=== PATIENT | male | born 1985 | race Caucasian/White ===

== ENCOUNTER 2020-09-19 06:30 | Outpatient (REF) | payer OTHER, SELFPAY ==
[2020-09-19 07:52] LABS: COVID-19 Test Negative (Negative)
== END 2020-09-19 06:31 | disposition home or self-care (01) ==
LOC: HO.EMPCOV 06:30
PROVIDERS: PCP Internal Medicine; Visit Provider Internal Medicine
DX: Z20.828 Contact with and (suspected) exposure to other viral communicable diseases (principal)
CPT/HCPCS: 87635; C9803

== ENCOUNTER → 2020-10-12 12:05 | Outpatient (BNVA) | payer OTHER, SELFPAY | PROVIDERS: PCP Internal Medicine; Visit Provider Physician Assistant | DX: Z20.822 Contact with and (suspected) exposure to COVID-19 (principal) | CPT/HCPCS: 99203 ==

== ENCOUNTER → 2020-10-14 10:58 | Outpatient (BNVA) | payer OTHER, SELFPAY | PROVIDERS: PCP Internal Medicine; Visit Provider Physician Assistant Medical | DX: Z20.822 Contact with and (suspected) exposure to COVID-19 (principal) | CPT/HCPCS: 99213 ==

== ENCOUNTER → 2020-10-21 10:08 | Outpatient (BNVA) | payer OTHER, SELFPAY | PROVIDERS: PCP Internal Medicine; Visit Provider Physician Assistant Medical | DX: Z20.822 Contact with and (suspected) exposure to COVID-19 (principal) | CPT/HCPCS: 99213 ==

== ENCOUNTER 2021-09-14 10:55 | Outpatient (REF) | payer OTHER, SELFPAY ==
[2021-09-14 10:59] LABS: MANUAL DIFF FLAG NO
[2021-09-14 11:15] LABS: Estimated Average Glucose 131 mg/dL; Hemoglobin A1c % 6.2 %
[2021-09-14 11:18] LABS: Basophils Absolute Auto 0.1 X10*3/uL (0.0-0.2); Basophils Percent Auto 1.1 % (0-2); Eosinophils Absolute Auto 0.2 X10*3/uL (0.0-0.4); Eosinophils Percent Auto 2.6 % (0-4); Hematocrit 43.8 % (42.0-52.0); Hemoglobin 14.9 g/dl (14.0-18.0); Imm Gran Abs Auto 0.02 X10*3/uL (0.00-0.03); Imm Gran Pct Auto 0.3 % (0.0-0.4); Lymphocytes Absolute Auto 2.1 X10*3/uL (1.2-4.9); Lymphocytes Percent Auto 31.5 % (20-40); Mean Corpuscular Hemoglobin 30.7 pg (27.0-33.0); Mean Corpuscular Volume 90.3 fL (80.0-98.0); Mean Platelet Volume 11.8 fL (9.4-12.4); Monocytes Absolute Auto 0.5 X10*3/uL (0.1-1.2); Monocytes Percent Auto 7.2 % (2-11); Neutrophils Absolute Auto 3.8 x10*3/uL (2.0-8.3); Neutrophils Percent Auto 57.3 % (45-73); Platelet Count 231 X10*3/uL (160-400); Red Blood Count 4.85 X10*6/uL (4.60-5.80); Red Cell Distribution Width 12.7 % (11.0-16.0); White Blood Count 6.7 X10*3/uL (4.8-10.8)
[2021-09-14 11:24] LABS: Appearance Urine CLEAR; Color Urine YELLOW; Glucose Urine UA NEG (NEG); Leukocyte Esterase Urine NEG (NEG); Nitrite Urine NEG (NEG); PH 5.5 (5.0-8.0); Specific Gravity - Urine 1.025 (1.005-1.025); Urine Blood NEG (NEG); Urine Ketones NEG (NEG); Urine Protein NEG (NEG-TRACE)
[2021-09-14 11:33] LABS: Alanine Aminotransferase 46 U/L (0-40); Albumin Level 4.1 g/dL (3.5-5.0); Alkaline Phosphatase 70 U/L (39-117); Anion Gap 13 (12-20); Aspartate Amino Transferase 27 U/L (5-37); Bilirubin Total 0.7 mg/dL (0.0-1.0); Blood Urea Nitrogen 13 mg/dL (9-16); Calcium 9.3 mg/dL (8.4-10.2); Carbon Dioxide 29 mmol/L (22-29); Chloride 104 mmol/L (96-108); Cholesterol 140 mg/dL; Estimated Glomerular Filt Rate > 60; Glucose Fasting 116 mg/dL (60-99); HDL Cholesterol 22 mg/dL; LDL Cholesterol Calculated 54 mg/dl; Potassium 4.1 mmol/L (3.3-5.1); Sodium 142 mmol/L (135-145); Triglycerides 320 mg/dL
[2021-09-14 11:57] LABS: Creatinine Urine 213.04 mg/dL; Microalbum/Creatinine Ratio Ur 3.7 ug/mg cr
== END 2021-09-14 10:56 | disposition home or self-care (01) ==
LOC: HO.LNP 10:55
PROVIDERS: PCP Internal Medicine; Visit Provider Internal Medicine
DX: Z00.00 Encounter for general adult medical examination without abnormal findings (principal); E78.6 Lipoprotein deficiency; R73.03 Prediabetes; I10 Essential (primary) hypertension
CPT/HCPCS: 80053; 80061; 81003; 82043; 83036; 85025

== ENCOUNTER 2021-10-07 06:50 | Outpatient (REF) | payer OTHER, SELFPAY ==
[2021-10-07 07:37] LABS: COVID-19 Test Negative (Negative)
== END 2021-10-07 06:51 | disposition home or self-care (01) ==
LOC: HO.LAB 06:50
PROVIDERS: Visit Provider Internal Medicine
DX: Z20.822 Contact with and (suspected) exposure to COVID-19 (principal)
CPT/HCPCS: 87635

== ENCOUNTER 2022-09-18 10:35 | Outpatient (REF) | payer SELFPAY ==
[2022-09-18 10:38] LABS: MANUAL DIFF FLAG NO
[2022-09-18 11:00] LABS: Appearance Urine Clear; Basophils Absolute Auto 0.1 X10*3/uL (0.0-0.2); Basophils Percent Auto 1.7 % (0-2); Color Urine Yellow; Eosinophils Absolute Auto 0.2 X10*3/uL (0.0-0.4); Glucose Urine UA Negative (Negative); Hematocrit 44.2 % (42.0-52.0); Hemoglobin 15.2 g/dl (14.0-18.0); Imm Gran Abs Auto 0.02 X10*3/uL (0.00-0.03); Imm Gran Pct Auto 0.3 % (0.0-0.4); Leukocyte Esterase Urine Negative (Negative); Lymphocytes Absolute Auto 2.2 X10*3/uL (1.2-4.9); Lymphocytes Percent Auto 31.7 % (20-40); Mean Corpuscular HGB Conc 34.4 g/dl (31.0-36.0); Mean Corpuscular Hemoglobin 30.1 pg (27.0-33.0); Mean Corpuscular Volume 87.5 fL (80.0-98.0); Mean Platelet Volume 11.7 fL (9.4-12.4); Monocytes Absolute Auto 0.5 X10*3/uL (0.1-1.2); Monocytes Percent Auto 6.5 % (2-11); Neutrophils Absolute Auto 3.9 x10*3/uL (2.0-8.3); Neutrophils Percent Auto 56.8 % (45-73); Nitrite Urine Negative (Negative); PH 5.5 (5.0-9.0); Platelet Count 235 X10*3/uL (160-400); Red Blood Count 5.05 X10*6/uL (4.60-5.80); Red Cell Distribution Width 12.9 % (11.0-16.0); Specific Gravity - Urine 1.015 (1.005-1.025); Urine Blood Negative (Negative); Urine Ketones Negative (Negative); Urine Protein Negative (Neg-Trace); White Blood Count 6.9 X10*3/uL (4.8-10.8)
[2022-09-18 11:05] LABS: Bacteria Urine None Seen (None Seen); Hyaline Casts Urine 0-2 /LPF (0-2); RBC Urine 0-2 /HPF (0-2); Squamous Epithelial Cell Urine 0-2 /HPF (0-2); WBC Urine 0-5 /HPF (0-5)
[2022-09-18 13:48] LABS: Alanine Aminotransferase 49 U/L (0-40); Albumin Level 4.2 g/dL (3.5-5.0); Alkaline Phosphatase 79 U/L (39-117); Anion Gap 13 (12-20); Aspartate Amino Transferase 34 U/L (5-37); Bilirubin Total 0.8 mg/dL (0.0-1.0); Blood Urea Nitrogen 10 mg/dL (9-16); Calcium 9.2 mg/dL (8.4-10.2); Carbon Dioxide 29 mmol/L (22-29); Chloride 102 mmol/L (96-108); Cholesterol 168 mg/dL; Estimated Glomerular Filt Rate > 60; Glucose Fasting 156 mg/dL (60-99); HDL Cholesterol 23 mg/dL; Potassium 3.9 mmol/L (3.3-5.1); Sodium 140 mmol/L (135-145); Total Protein 6.9 g/dL (6.5-8.0); Triglycerides 545 mg/dL
[2022-09-18 13:52] LABS: Microalbum/Creatinine Ratio Ur 17.2 ug/mg cr
[2022-09-18 14:16] LABS: Estimated Average Glucose 140 mg/dL; Hemoglobin A1c % 6.5 %
== END 2022-09-18 10:36 | disposition home or self-care (01) ==
LOC: HO.LNP 10:35
PROVIDERS: Visit Provider Internal Medicine
DX: Z00.00 Encounter for general adult medical examination without abnormal findings (principal); E78.6 Lipoprotein deficiency; I10 Essential (primary) hypertension; R73.03 Prediabetes
CPT/HCPCS: 80053; 80061; 81001; 82043; 83036; 85025

== ENCOUNTER 2023-11-28 12:20 | Outpatient (REF) | payer BC, SELFPAY ==
[2023-11-28 12:30] LABS: MANUAL DIFF FLAG NO
[2023-11-28 12:54] LABS: Basophils Absolute Auto 0.1 X10*3/uL (0.0-0.2); Basophils Percent Auto 1.3 % (0-2); Eosinophils Absolute Auto 0.2 X10*3/uL (0.0-0.4); Eosinophils Percent Auto 1.8 % (0-4); Hematocrit 45.6 % (42.0-52.0); Hemoglobin 16.1 g/dl (14.0-18.0); Imm Gran Abs Auto 0.02 X10*3/uL (0.00-0.03); Imm Gran Pct Auto 0.2 % (0.0-0.4); Lymphocytes Absolute Auto 2.3 X10*3/uL (1.2-4.9); Lymphocytes Percent Auto 27.7 % (20-40); Mean Corpuscular HGB Conc 35.3 g/dl (31.0-36.0); Mean Corpuscular Hemoglobin 30.4 pg (27.0-33.0); Mean Corpuscular Volume 86.2 fL (80.0-98.0); Mean Platelet Volume 11.7 fL (9.4-12.4); Monocytes Absolute Auto 0.5 X10*3/uL (0.1-1.2); Monocytes Percent Auto 5.8 % (2-11); Neutrophils Absolute Auto 5.1 x10*3/uL (2.0-8.3); Neutrophils Percent Auto 63.2 % (45-73); Platelet Count 250 X10*3/uL (160-400); Red Blood Count 5.29 X10*6/uL (4.60-5.80); Red Cell Distribution Width 13.2 % (11.0-16.0); White Blood Count 8.2 X10*3/uL (4.8-10.8)
[2023-11-28 13:02] LABS: Appearance Urine Turbid; Color Urine Dark Yellow; Glucose Urine UA 100 mg/dL (Negative); Leukocyte Esterase Urine Negative (Negative); Nitrite Urine Negative (Negative); PH 5.5 (5.0-9.0); Specific Gravity - Urine 1.025 (1.005-1.025); UMIC TRIGGER UACC YES; Urine Blood Negative (Negative); Urine Ketones Trace mg/dL (Negative); Urine Protein 100 (2+) mg/dL (Neg-Trace)
[2023-11-28 13:05] LABS: Estimated Average Glucose 189 mg/dL; Hemoglobin A1c % 8.2 % (<6.0)
[2023-11-28 13:17] LABS: Alanine Aminotransferase 70 U/L (0-40); Albumin Level 4.4 g/dL (3.5-5.0); Alkaline Phosphatase 95 U/L (39-117); Anion Gap 14 (12-20); Aspartate Amino Transferase 45 U/L (5-37); Bilirubin Total 1.3 mg/dL (0.0-1.0); Blood Urea Nitrogen 11 mg/dL (9-16); Calcium 9.5 mg/dL (8.4-10.2); Carbon Dioxide 27 mmol/L (22-29); Chloride 101 mmol/L (96-108); Cholesterol 202 mg/dL (<200); Estimated Glomerular Filt Rate > 60; Glucose Fasting 220 mg/dL (60-99); HDL Cholesterol 20 mg/dL (>40); Potassium 4.1 mmol/L (3.3-5.1); Sodium 138 mmol/L (135-145); Total Protein 7.6 g/dL (6.5-8.0); Triglycerides 825 mg/dL (<150)
[2023-11-28 13:27] LABS: Bacteria Urine None Seen (None Seen); RBC Urine 0-2 /HPF (0-2); WBC Urine 0-5 /HPF (0-5)
[2023-11-28 13:33] LABS: Microalbum/Creatinine Ratio Ur 44.3 ug/mg cr (<30)
[2023-11-28 13:35] LABS: PSA,Total (Free>4and<10) 0.47 ng/mL (0.00-4.00)
== END 2023-11-28 12:21 | disposition home or self-care (01) ==
LOC: HO.LNP 12:20
PROVIDERS: Visit Provider Internal Medicine
DX: Z00.00 Encounter for general adult medical examination without abnormal findings (principal); Z12.5 Encounter for screening for malignant neoplasm of prostate; E78.6 Lipoprotein deficiency; E11.9 Type 2 diabetes mellitus without complications; I10 Essential (primary) hypertension
CPT/HCPCS: 80053; 80061; 81001; 82043; 82570; 83036; 84153; 85025

== ENCOUNTER 2024-02-27 14:16 | Outpatient (AMB) | payer BC, SELFPAY ==
--- NOTE | 2024-02-27 14:21 | A.OFFVIS_ITS ---
VS Expanded 02/27/24 14:22 03/04/24 08:56 Height 5 ft 10 in 5 ft 10 in Weight 224 lb 13.944 oz 225 lb BMI 32.3 32.3 Intake Visit Reasons: T2DM/LVM Allergies sulfamethoxazole [From BACTRIM] Allergy (Mild, Unverified 06/16/20 15:57) RASH trimethoprim [From BACTRIM] Allergy (Mild, Unverified 06/16/20 15:57) RASH bactrim Allergy (Unknown, Uncoded 08/25/19 00:00) Nutrition Presentation Details: Pt presents for MNT for T2DM. Pt was referred by Dr. Betancourt Reports having lack of meal routine, wants to work on meal planning and nutrition ed for t2dm food frequency fruits/d: 0-1/d vegetables: 1-2 serving/d dairy: fortified almond fish: 2-3 m eating out: once/wk ETOH: occ smoking: denies physical : sedentary /golfing BS Monitoring Most Recent Diabetes Results: Hemoglobin A1c 5.5 % 02/02/19 Microalb/Creat Ratio 44.3 ug/mg cr (<30) H 11/28/23 Cholesterol 202 mg/dL (<200) H 11/28/23 HDL Cholesterol 20 mg/dL (>40) L 11/28/23 Triglycerides 825 mg/dL (<150) H 11/28/23 Creatinine 1.08 mg/dL (0.5-1.4) 11/28/23 Blood Urea Nitrogen 11 mg/dL (9-16) 11/28/23 Sodium 138 mmol/L (135-145) 11/28/23 Potassium 4.1 mmol/L (3.3-5.1) 11/28/23 Chloride 101 mmol/L (96-108) 11/28/23 Carbon Dioxide 27 mmol/L (22-29) 11/28/23 Calcium 9.5 mg/dL (8.4-10.2) 11/28/23 AST 45 U/L (5-37) H 11/28/23 ALT 70 U/L (0-40) H 11/28/23 Total Protein 7.6 g/dL (6.5-8.0) 11/28/23 Albumin 4.4 g/dL (3.5-5.0) 11/28/23 D[facility]-Sqkby[facility]-AtJessica Equation Height: 5 ft 10 in Weight: 225 lb Resting Metabolic Rate: 1939.01 Calculated Activity Level: Sedentary Calories Needed to Maintain Weight: 2326.81 Diagnosis Nutrition problem #1: food nutri know defi As related to (etiology) #1: diagnosis As evidenced by (sign/symptom) #1: knowledge deficit of diet Monitoring/Goals Nutrition problem monitoring: level of knowledge/skill, glucose, fasting, total CHO intake and weight Nutrition goal/outcome: list 3 CHO foods, wt loss 5lbs in 2 months and list 3 high fiber foods Outcome progress: verbalized understanding Learning/Education Readiness to learn: good Stages of change: preparation Assessment & Plan Assessment & Plan (1) T2DM (type 2 diabetes mellitus): Code(s): E11.9 - Type 2 diabetes mellitus without complications Category: Medical Plan: Wt: 102 Kg ( 01/2024 ) Est kcal needs as per MSJ: 2300 (40% carb, 30% protein/fat) Est fluid needs as per 25-30 ml/d: 3100 Est prot per day as per 1 g/kg bw: 102 Recommend fiber intake : 8-10 g per day and gradually increase to 25-28 g per day for women and 35-38 g for men or as tolerated Recommend sodium intake per day : less than 2000 mg Educated patient on: ( R = reviewed V = verbalizes understanding N/R = needs review N/A = not applicable * Food sources of carbohydrate, adequate serving sizes and its role in various health conditions: R * Differences between complex carbohydrates a simple carbohydrates, role of fiber in diet: R * Lean protein sources of foods: R * Differences between types of fats and role in diet (mono on saturated fat fatty acids, saturated fatty acids, trans fats): R * Food sources of sodium in salt and healthy modifications for heart health in kidney health: R V R/V * Vitamins and minerals: R V N/R * Healthy plate method concept: R * Physical activity: Benefits a precaution: R V N/R * Hypoglycemia protocol (rule of 15): R V N/R * Dietary prevention of Hyperglycemia: R Patient Instructions: Reduce total carbohydrate at meal to less than 80 g following healthy plate method choose complex carbohydrates, water/fruit/herb infused water abstain from alcoholic beverages Coding Level of Care Code Nutr Indiv Intake (80130) Diagnoses T2DM (type 2 diabetes mellitus) E11.9 Time Spent (min) 30
[2024-02-27 14:22] VITALS: BMI 32.3
[2024-03-04 08:56] VITALS: BMI 32.3
== END 2024-02-27 15:04 | disposition home or self-care (01) ==
PROVIDERS: PCP Internal Medicine; Visit Provider Dietitian, Registered
DX: E11.9 Type 2 diabetes mellitus without complications (principal)

== ENCOUNTER → 2024-02-27 14:16 | Outpatient (BNVA) | payer BC, SELFPAY | PROVIDERS: PCP Internal Medicine; Visit Provider Dietitian, Registered | DX: E11.9 Type 2 diabetes mellitus without complications (principal); Z71.3 Dietary counseling and surveillance | CPT/HCPCS: 97802 ==

== ENCOUNTER 2024-03-05 11:06 | Outpatient (REF) | payer BC, SELFPAY ==
[2024-03-05 12:03] LABS: Alanine Aminotransferase 48 U/L (0-40); Albumin Level 4.2 g/dL (3.5-5.0); Alkaline Phosphatase 105 U/L (39-117); Aspartate Amino Transferase 29 U/L (5-37); Bilirubin Direct 0.3 mg/dL (0.0-0.5); Bilirubin Total 0.9 mg/dL (0.0-1.0); Cholesterol 115 mg/dL (<200); HDL Cholesterol 19 mg/dL (>40); Triglycerides 444 mg/dL (<150)
[2024-03-07 08:04] LABS: LDL Cholesterol Direct 30 mg/dL (<100)
== END 2024-03-05 11:07 | disposition home or self-care (01) ==
LOC: HO.LNP 11:06
PROVIDERS: Visit Provider Internal Medicine
DX: E11.9 Type 2 diabetes mellitus without complications (principal)
CPT/HCPCS: 80061; 80076; 83721

== ENCOUNTER 2024-04-09 13:54 | Outpatient (AMB) | payer BC, SELFPAY ==
[2024-04-09 14:17] VITALS: BMI 31.8
--- NOTE | 2024-04-09 14:17 | A.OFFVIS_ITS ---
VS Expanded 04/09/24 14:17 Height 5 ft 10 in Weight 221 lb 5.506 oz BMI 31.8 Intake Visit Reasons: T2DM/LVM Allergies sulfamethoxazole [From BACTRIM] Allergy (Mild, Unverified 06/16/20 15:57) RASH trimethoprim [From BACTRIM] Allergy (Mild, Unverified 06/16/20 15:57) RASH bactrim Allergy (Unknown, Uncoded 08/25/19 00:00) Nutrition Presentation Details: Pt presents for MNT f/u for t2DM Pt reports working on gradual diet modification and Increasing fiber choosing fiber rich foods, reading food labels BS Monitoring Most Recent Diabetes Results: Microalb/Creat Ratio 44.3 ug/mg cr (<30) H 11/28/23 Cholesterol 115 mg/dL (<200) 03/05/24 HDL Cholesterol 19 mg/dL (>40) L 03/05/24 Triglycerides 444 mg/dL (<150) H 03/05/24 Creatinine 1.08 mg/dL (0.5-1.4) 11/28/23 Blood Urea Nitrogen 11 mg/dL (9-16) 11/28/23 Sodium 138 mmol/L (135-145) 11/28/23 Potassium 4.1 mmol/L (3.3-5.1) 11/28/23 Chloride 101 mmol/L (96-108) 11/28/23 Carbon Dioxide 27 mmol/L (22-29) 11/28/23 Calcium 9.5 mg/dL (8.4-10.2) 11/28/23 AST 29 U/L (5-37) 03/05/24 ALT 48 U/L (0-40) H 03/05/24 Total Protein 7.0 g/dL (6.5-8.0) 03/05/24 Albumin 4.2 g/dL (3.5-5.0) 03/05/24 Assessment & Plan Assessment & Plan (1) T2DM (type 2 diabetes mellitus): Code(s): E11.9 - Type 2 diabetes mellitus without complications Category: Medical Plan: Wt: 102 Kg ( 01/2024 ), 100kg (03/2024) Est kcal needs as per MSJ: 2300 (40% carb, 30% protein/fat) Est fluid needs as per 25-30 ml/d: 3100 Est prot per day as per 1 g/kg bw: 102 Recommend fiber intake : 8-10 g per day and gradually increase to 25-28 g per day for women and 35-38 g for men or as tolerated Recommend sodium intake per day : less than 2000 mg Educated patient on: ( R = reviewed V = verbalizes understanding N/R = needs review N/A = not applicable * Food sources of carbohydrate, adequate serving sizes and its role in various health conditions: R * Differences between complex carbohydrates a simple carbohydrates, role of fiber in diet: R * Lean protein sources of foods: R * Differences between types of fats and role in diet (mono on saturated fat fatty acids, saturated fatty acids, trans fats): R * Food sources of sodium in salt and healthy modifications for heart health in kidney health: R * Vitamins and minerals: R * Physical activity: Benefits a precaution: R * Hypoglycemia protocol (rule of 15): R V N/R * Dietary prevention of Hyperglycemia: R Patient Instructions: Continue working om meal planning , reducing total carb at meal to less than 80 g following healthy plat emthod Be mindful of high salt foods, do not add table salt to foods Coding Level of Care Code Nutr Indiv Subseq (27727) Diagnoses T2DM (type 2 diabetes mellitus) E11.9 Time Spent (min) 20
== END 2024-04-09 14:41 | disposition home or self-care (01) ==
PROVIDERS: PCP Internal Medicine; Visit Provider Dietitian, Registered
DX: E11.9 Type 2 diabetes mellitus without complications (principal)

== ENCOUNTER → 2024-04-09 13:54 | Outpatient (BNVA) | payer BC, SELFPAY | PROVIDERS: PCP Internal Medicine; Visit Provider Dietitian, Registered | DX: E11.9 Type 2 diabetes mellitus without complications (principal); Z71.3 Dietary counseling and surveillance | CPT/HCPCS: 97803 ==

== ENCOUNTER 2024-07-09 14:15 | Outpatient (AMB) | payer BC, SELFPAY ==
--- NOTE | 2024-07-09 14:40 | A.OFFVIS_ITS ---
VS Expanded 07/09/24 14:41 Height 5 ft 10 in Weight 221 lb 9.738 oz BMI 31.8 Intake Visit Reasons: T2DM/CONFIRMED Allergies sulfamethoxazole [From BACTRIM] Allergy (Mild, Unverified 06/16/20 15:57) RASH trimethoprim [From BACTRIM] Allergy (Mild, Unverified 06/16/20 15:57) RASH bactrim Allergy (Unknown, Uncoded 08/25/19 00:00) Nutrition Presentation Details: Pt presents for MNT f/u for T2DM Pt reports working on dietary modifications t BS Monitoring Most Recent Diabetes Results: Microalb/Creat Ratio 44.3 ug/mg cr (<30) H 11/28/23 Cholesterol 115 mg/dL (<200) 03/05/24 HDL Cholesterol 19 mg/dL (>40) L 03/05/24 Triglycerides 444 mg/dL (<150) H 03/05/24 Creatinine 1.08 mg/dL (0.5-1.4) 11/28/23 Blood Urea Nitrogen 11 mg/dL (9-16) 11/28/23 Sodium 138 mmol/L (135-145) 11/28/23 Potassium 4.1 mmol/L (3.3-5.1) 11/28/23 Chloride 101 mmol/L (96-108) 11/28/23 Carbon Dioxide 27 mmol/L (22-29) 11/28/23 Calcium 9.5 mg/dL (8.4-10.2) 11/28/23 AST 29 U/L (5-37) 03/05/24 ALT 48 U/L (0-40) H 03/05/24 Total Protein 7.0 g/dL (6.5-8.0) 03/05/24 Albumin 4.2 g/dL (3.5-5.0) 03/05/24 Assessment & Plan Assessment & Plan (1) T2DM (type 2 diabetes mellitus): Code(s): E11.9 - Type 2 diabetes mellitus without complications Category: Medical Plan: Wt: 102 Kg ( 01/2024 ), 100kg (03/2024), 07/23 Est kcal needs as per MSJ: 2300 (40% carb, 30% protein/fat) Est fluid needs as per 25-30 ml/d: 3100 Est prot per day as per 1 g/kg bw: 102 Recommend fiber intake : 8-10 g per day and gradually increase to 25-28 g per day for women and 35-38 g for men or as tolerated Recommend sodium intake per day : less than 2000 mg Educated patient on: ( R = reviewed V = verbalizes understanding N/R = needs review N/A = not applicable * Food sources of carbohydrate, adequate serving sizes and its role in various health conditions: R * Differences between complex carbohydrates a simple carbohydrates, role of fiber in diet: R * Lean protein sources of foods: R * Differences between types of fats and role in diet (mono on saturated fat fatty acids, saturated fatty acids, trans fats): R * Food sources of sodium in salt and healthy modifications for heart health in kidney health: R * Vitamins and minerals: R * Physical activity: Benefits a precaution: R * Hypoglycemia protocol (rule of 15): R V N/R * Dietary prevention of Hyperglycemia: R Patient Instructions: Continue working on following healthy plate method, Choose fiber rich foods (whole grain, seeds, non starchy vegetables) and increase water consumption to prevent constipation as you increase amount of fiber Coding Level of Care Code Nutr Indiv Subseq (99878) Diagnoses T2DM (type 2 diabetes mellitus) E11.9 Time Spent (min) 25
[2024-07-09 14:41] VITALS: BMI 31.8
== END 2024-07-09 14:58 | disposition home or self-care (01) ==
PROVIDERS: PCP Internal Medicine; Visit Provider Dietitian, Registered
DX: E11.9 Type 2 diabetes mellitus without complications (principal)

== ENCOUNTER → 2024-07-09 14:15 | Outpatient (BNVA) | payer BC, SELFPAY | PROVIDERS: PCP Internal Medicine; Visit Provider Dietitian, Registered | DX: E11.9 Type 2 diabetes mellitus without complications (principal); Z71.3 Dietary counseling and surveillance | CPT/HCPCS: 97803 ==

== ENCOUNTER 2024-12-03 10:16 | Outpatient (REF) | payer BC, SELFPAY ==
[2024-12-03 10:21] LABS: MANUAL DIFF FLAG NO
[2024-12-03 11:23] LABS: Basophils Absolute Auto 0.1 X10*3/uL (0.0-0.2); Basophils Percent Auto 1.3 % (0-2); Eosinophils Absolute Auto 0.2 X10*3/uL (0.0-0.4); Eosinophils Percent Auto 2.2 % (0-4); Hematocrit 45.4 % (42.0-52.0); Hemoglobin 15.5 g/dl (14.0-18.0); Imm Gran Abs Auto 0.02 X10*3/uL (0.00-0.03); Imm Gran Pct Auto 0.3 % (0.0-0.4); Lymphocytes Absolute Auto 2.2 X10*3/uL (1.2-4.9); Lymphocytes Percent Auto 28.4 % (20-40); Mean Corpuscular HGB Conc 34.1 g/dl (31.0-36.0); Mean Corpuscular Hemoglobin 29.9 pg (27.0-33.0); Mean Corpuscular Volume 87.6 fL (80.0-98.0); Mean Platelet Volume 12.3 fL (9.4-12.4); Monocytes Absolute Auto 0.7 X10*3/uL (0.1-1.2); Monocytes Percent Auto 8.7 % (2-11); Neutrophils Absolute Auto 4.6 x10*3/uL (2.0-8.3); Neutrophils Percent Auto 59.1 % (45-73); Platelet Count 232 X10*3/uL (160-400); Red Blood Count 5.18 X10*6/uL (4.60-5.80); Red Cell Distribution Width 12.8 % (11.0-16.0); White Blood Count 7.8 X10*3/uL (4.8-10.8)
[2024-12-03 11:36] LABS: Estimated Average Glucose 232 mg/dL; Hemoglobin A1c % 9.7 % (<6.0)
[2024-12-03 11:47] LABS: Alanine Aminotransferase 74 U/L (0-40); Albumin Level 4.3 g/dL (3.5-5.0); Alkaline Phosphatase 125 U/L (39-117); Anion Gap 15 (12-20); Aspartate Amino Transferase 58 U/L (5-37); Bilirubin Total 1.1 mg/dL (0.0-1.0); Blood Urea Nitrogen 12 mg/dL (9-16); Calcium 9.4 mg/dL (8.4-10.2); Carbon Dioxide 27 mmol/L (22-29); Chloride 102 mmol/L (96-108); Cholesterol 120 mg/dL (<200); Estimated Glomerular Filt Rate > 60; Glucose Fasting 237 mg/dL (60-99); HDL Cholesterol 20 mg/dL (>40); Potassium 3.7 mmol/L (3.3-5.1); Sodium 140 mmol/L (135-145); Total Protein 7.8 g/dL (6.5-8.0); Triglycerides 504 mg/dL (<150)
[2024-12-03 11:55] LABS: PSA,Total (Free>4and<10) 0.54 ng/mL (0.00-4.00)
[2024-12-03 11:57] LABS: Appearance Urine Hazy; Color Urine Yellow; Glucose Urine UA 250 mg/dL (Negative); Leukocyte Esterase Urine Negative (Negative); Nitrite Urine Negative (Negative); Specific Gravity - Urine >= 1.030 (1.005-1.025); UMIC TRIGGER UACC YES; Urine Blood Negative (Negative); Urine Ketones Trace mg/dL (Negative); Urine Protein 30 (1+) mg/dL (Neg-Trace)
[2024-12-03 11:58] LABS: Bacteria Urine Trace (None Seen); Hyaline Casts Urine 0-2 /LPF (0-2); RBC Urine 0-2 /HPF (0-2); Squamous Epithelial Cell Urine 0-2 /HPF (0-2); WBC Urine 0-5 /HPF (0-5)
--- OUTSIDE RECORDS SUMMARY | 2024-12-03 12:10 | XMS_ITS | Patient Health Record ---
Author Organization Elmer Betancourt MD Address [address] [place], [place] [id number] Care Team Providers Care Credit Adjuster Name Role Phone Elmer Betancourt Primary Care Provider [phone] Allergies Allergen (clinical drug ingredient) Drug/Non Drug Allergy documented on EMR Reaction Allergy Type Onset Date Status Substance with sulfonamide structure and antibacterial mechanism of action (substance) sulfa (uncoded) hives Allergy Active Results Component Value Reference Range Notes Hemoglobin A1c Reviewed date:03/09/2024 03:16:09 PM Interpretation: Performing Lab: Notes/Report: Hemoglobin A1c 7.2 Hemoglobin A1c Reviewed date:07/09/2024 01:36:45 PM Interpretation: Performing Lab: Notes/Report: Hemoglobin A1c 8.4 Liver Panel Reviewed date:03/05/2024 12:43:58 PM Interpretation: Performing Lab:[facility], [address] [place] [phone] Notes/Report: Bilirubin Total 0.9 0.0-1.0 mg/dL Bilirubin Direct 0.3 0.0-0.5 mg/dL Aspartate Amino Transferase 29 5-37 U/L Alanine Aminotransferase 48 0-40 U/L Total Protein 7.0 6.5-8.0 g/dL Albumin Level 4.2 3.5-5.0 g/dL Alkaline Phosphatase 105 39-117 U/L Lipid Panel Reviewed date:03/05/2024 12:53:35 PM Interpretation: Performing Lab:[facility], [address] [place] [phone] Notes/Report: Triglycerides 444 <150 mg/dL Desirable Triglyceride: less than 150 mg/dL Borderline High Triglyceride 150-199 mg/dL High Triglyceride: 200-499 mg/dL Very High Triglyceride: greater than or equal to 5OO mg/dL Cholesterol 115 <200 mg/dL Desirable Cholesterol: less than 200 mg/dL Borderline High Cholesterol: 200-239 mg/dL High Cholesterol: greater than 239 mg/dL LDL Cholesterol Calculated TNP <100 mg/dL Unable to calculate the LDL. The formula of Friedwald, Rosario, and Lurdes is only valid if the triglycerides are less than 400 mg/dl. HDL Cholesterol 19 >40 mg/dL Desirable HDL: greater than 40 mg/dL Note: This HDL assay may give artificially low results in patients with liver disease. LDL Cholesterol Direct Reviewed date:03/09/2024 12:40:23 PM Interpretation: Performing Lab:[facility], [address] [place] [phone] Notes/Report: LDL Cholesterol Direct 30 <100 mg/dL Greatly elevated Triglycerides values (>1200 mg/dL) interfere with the dLDL assay. Desirable range <100 mg/dL for primary prevention; <70 mg/dL for patients with CHD or diabetic patients with > or = 2 CHD risk factors. THIS TEST WAS PERFORMED AT: [facility] [address] [place] [phone] BRIANNA CARMEN MD Glucose, finger stick Reviewed date:03/09/2024 03:01:04 PM Interpretation: Performing Lab: Notes/Report: Value 178 Glucose, finger stick Reviewed date:07/09/2024 01:30:17 PM Interpretation: Performing Lab: Notes/Report: Value 156 Complete Blood Count Auto Di ff (Not yet reviewed by provider) Interpretation: Performing Lab:[facility], [address] [place] [phone] Notes/Report: White Blood Count 7.8 4.8-10.8 X10*3/uL Red Blood Count 5.18 4.60-5.80 X10*6/uL Hemoglobin 15.5 14.0-18.0 g/dl Hematocrit 45.4 42.0-52.0 % Mean Corpuscular Volume 87.6 80.0-98.0 fL Mean Corpuscular Hemoglobin 29.9 27.0-33.0 pg Mean Corpuscular HGB Conc 34.1 31.0-36.0 g/dl Red Cell Distribution Width 12.8 11.0-16.0 % Platelet Count 232 160-400 X10*3/uL Mean Platelet Volume 12.3 9.4-12.4 fL Neutrophils Percent Auto 59.1 45-73 % Imm Gran Pct Auto 0.3 0.0-0.4 % Lymphocytes Percent Auto 28.4 20-40 % Monocytes Percent Auto 8.7 2-11 % Eosinophils Percent Auto 2.2 0-4 % Basophils Percent Auto 1.3 0-2 % NRBC Pct Auto 0.0 0.0-0.2 /100WBC Neutrophils Absolute Auto 4.6 2.0-8.3 x10*3/u L Imm Gran Abs Auto 0.02 0.00-0.03 X10*3/uL Lymphocytes Absolute Auto 2.2 1.2-4.9 X10*3/u L Monocytes Absolute Auto 0.7 0.1-1.2 X10*3/uL Eosinophils Absolute Auto 0.2 0.0-0.4 X10*3/u L Basophils Absolute Auto 0.1 0.0-0.2 X10*3/uL NRBC Abs Auto 0.000 0.0-0.012 X10*3/uL Comprehensive [place]. Panel Fa st (Not yet reviewed by provider) Interpretation: Performing Lab:[facility], [address] [place] [address], [place] [phone] Notes/Report: Sodium 140 135-145 mmol/L Potassium 3.7 3.3-5.1 mmol/L Chloride 102 96-108 mmol/L Carbon Dioxide 27 22-29 mmol/L Anion Gap 15 12-20 Blood Urea Nitrogen 12 9-16 mg/dL Creatinine 0.99 0.5-1.4 mg/dL Estimated Glomerular Filt Rate > 60 Chronic Kidney Disease: Estimated GFR < 60 mL/min/1.73m2 Severe Kidney Disease: Estimated GFR < 15 mL/min/1.73m2 Glucose Fasting 237 60-99 mg/dL A fasting glucose of 126 mg/dl or greater on more than one occasion is considered diagnostic of diabetes. Calcium 9.4 8.4-10.2 mg/dL Bilirubin Total 1.1 0.0-1.0 mg/dL Aspartate Amino Transferase 58 5-37 U/L Alanine Aminotransferase 74 0-40 U/L Total Protein 7.8 6.5-8.0 g/dL Albumin Level 4.3 3.5-5.0 g/dL Alkaline Phosphatase 125 39-117 U/L Lipid Panel (Not yet reviewe d by provider) Interpretation: Performing Lab:[address] [phone] Notes/Report: Triglycerides 504 <150 mg/dL Desirable Triglyceride: less than 150 mg/dL Borderline High Triglyceride 150-199 mg/dL High Triglyceride: 200-499 mg/dL Very High Triglyceride: greater than or equal to 5OO mg/dL Cholesterol 120 <200 mg/dL Desirable Cholesterol: less than 200 mg/dL Borderline High Cholesterol: 200-239 mg/dL High Cholesterol: greater than 239 mg/dL LDL Cholesterol Calculated TNP <100 mg/dL Unable to calculate the LDL. The formula of Friedwald, Rosario, and Lurdes is only valid if the triglycerides are less than 400 mg/dl. HDL Cholesterol 20 >40 mg/dL Desirable HDL: greater than 40 mg/dL Note: This HDL assay may give artificially low results in patients with liver disease. PSA,Total (Free>4and<10) (No t yet reviewed by provider) Interpretation: Performing Lab:[facility], [address] [place] [phone] Notes/Report: PSA,Total (Free>4and<10) 0.54 0.00-4.00 ng/mL A Free PSA was not performed: The percentage of Free PSA can be used to enhance the differentiation of prostate cancer from benign prostatic disease in subjects whose PSA levels are between 4.0 and 10.0 ng/mL. For subjects whose PSA levels are below 4.0 or above 10.0 ng/mL, the risk of prostate cancer is determined on the basis of the PSA alone. Therefore the % Free PSA is recommended only for those subjects whose PSA levels are between 4.0 and 10.0 ng/mL. PSA methodology: Rowe Alinity i Chemiluminescent Microparticle Immunoassay (CMIA) Hemoglobin A1c (Not yet revi ewed by provider) Interpretation: Performing Lab:[facility], [address] [place] [phone] Notes/Report: Hemoglobin A1c % 9.7 <6.0 % Hemoglobin A1C Reference Range Adults: 4.8 - 6.0 % Non diabetic: < 6.0 % Goal: < 7.0 % Additional Action Suggested: > 8.0 % Note: Hemoglobin A1c results are invalid for patients with abnormal amounts of HbF. Blood transfusions may impact the HbA1c concentration in the patient sample. Estimated Average Glucose 232 eAG = Estimated average glucose which is %A1C expressed as average glucose, using the formula of the [id number] Average Glucose study (ADAG), Diabetes Care, Vol.31,#8, 2007 UA ClnCatch+Micro w/rflx Cul t (Not yet reviewed by provider) Interpretation: Performing Lab:[facility], [address] [place] [phone] Notes/Report: Urine, Clean Catch Color Urine Yellow Appearance Urine Hazy PH 6.0 5.0-9.0 Glucose Urine UA 250 Negative mg/dL Urine Blood Negative Negative Specific [place] - Urine >= 1.030 1.005-1.025 Urine Protein 30 (1+) Neg-Trace mg/dL Urine Ketones Trace Negative mg/dL Nitrite Urine Negative Negative Leukocyte Esterase Urine Negative Negative RBC Urine 0-2 0-2 /HPF WBC Urine 0-5 0-5 /HPF Squamous Epithelial Cell Urine 0-2 0-2 /HPF Bacteria Urine Trace None Seen Hyaline Casts Urine 0-2 0-2 /LPF Reason For Referral No Information Medications Medication SIG (Take, Route, Frequency, Duration) Notes Start Date End Date Status Atorvastatin Calcium 40 MG 1 tablet Orally Once a day 12/03/2023 Active Valsartan-hydroCHLOROthia zide 160-12.5 MG 1 tablet Orally Once a day 12/03/2023 Active metFORMIN HCl 500 MG 1 tablet with a amy l Orally twice a day 12/03/2023 Active Ibuprofen 200 MG 1 tablet with food o r milk as needed Orally Three times a day Not-Taking Albuterol Sulfate HFA 108 (90 Base) MCG/ACT INHALE 1 PUFF INTO THE LUNGS EVERY 4 HOURS NEEDED for 25 Not-Taking Immunizations Vaccine Route Administration Date Status Comme nts Fluarix Quadrivalent Unknown 08/28/2018 Administered HM C SARS-COV-2 Pfizer Unknown 09/19/2020 Administered SARS-COV-2 Pfizer Unknown 10/10/2020 Administered SARS-COV-2 Pfizer Unknown 10/03/2021 Administered Social History Tobacco Use: Social History Observation Description Date Details (start date - stop date) Never Smoker NA - NA Tobacco Use/Smoking Question Answer Notes Patient is a nonsmoker Additional Findings: Tobacco Non-User Cu rrent non-smoker, currently using no form of tobacco Alcohol Screen Question Answer Notes Did you have a drink contain ing alcohol in the past year? Yes How often did you have a dri nk containing alcohol in the past year? Monthly or less (1 point) How many drinks did you have on a typical day when you were drinking in the past year? 1 or 2 drinks (0 point) How often did you have 6 or more drinks on one occasion in the past year? Never (0 point) Points 1 Interpretation Negative Section Notes: works as [employer] works as [employer] Problems Problem Type SNOMED Code ICD Code Onset Dates Problem Status W/U Status Risk Notes Problem 74940499 Essential hypertension (I10) Active confirmed Problem 582569763 Low HDL (under 40) (E78.6) Active confirmed Problem 982497828 Dysplastic nevi (D23.9) Active confirmed Problem 881205004 Type 2 diabetes mellitus without complication, without long-term current use of insulin (E11.9) Active confirmed Problem 847495945 Emotional stress (R45.7) Active confirmed Vital Signs Blood pressure diastolic 76 mm Hg 07/09/2024 Height 70 in 07/09/2024 Blood pressure systolic 142 mm Hg 07/09/2024 Weight 222 lbs 07/09/2024 BMI 31.85 kg/m2 07/09/2024 Encounters Encounter Location Date Provider Diagnosis Elmer Betancourt MD [address] [facility] [address] [place], [place] [phone] 03/05/2024 Elmer Betancourt Type 2 diabetes mellitus without complication, without long-term current use of insulin E11.9 and Low HDL (under 40) E78.6 Elmer Betancourt MD [address] [place] [phone] 12/03/2024 Elmer Betancourt Blood tests for routine general physical examination Z00.00 ; Low HDL (under 40) E78.6 ; Essential hypertension I10 and Type 2 diabetes mellitus without complication, without long-term current use of insulin E11.9 Elmer Betancourt MD [address] [place] [address] [id number] 03/09/2024 Elmer Betancourt Type 2 diabetes mellitus without complication, without long-term current use of insulin E11.9 ; Low HDL (under 40) E78.6 and Essential hypertension I10 Elmer Betancourt MD [address] [place] [address] [address] [id number] 07/09/2024 Elmer Betancourt Type 2 diabetes mellitus without complication, without long-term current use of insulin E11.9 and Emotional stress R45.7 Assessments Encounter Date Diagnosis (ICD Code) Assessment Notes Treatment Notes Treatment Clinical Notes Section Notes 03/05/2024 Type 2 diabetes mellitus without complication, without long-term current use of insulin (ICD-10 - E11.9) 03/05/2024 Low HDL (under 40) (ICD-10 - E78.6) 12/03/2024 Blood tests for routine general physical examination (ICD-10 - Z00.00) 03/09/2024 Type 2 diabetes mellitus without complication, without long-term current use of insulin (ICD-10 - E11.9) will continue current regient and maintain better diet control 03/09/2024 Low HDL (under 40) (ICD-10 - E78.6) stable, will cntinue current regiment 07/09/2024 Type 2 diabetes mellitus without complication, without long-term current use of insulin (ICD-10 - E11.9) 07/09/2024 Emotional stress (ICD-10 - R45.7) is starting jumping rope to lose weight, enoying new job 12/03/2024 Low HDL (under 40) (ICD-10 - E78.6) 03/09/2024 Essential hypertension (ICD-10 - I10) stable, will continue current regiment 12/03/2024 Essential hypertension (ICD-10 - I10) 12/03/2024 Type 2 diabetes mellitus without complication, without long-term current use of insulin (ICD-10 - E11.9) 07/09/2024 Other Total time spent on the date of the encounter is 35 minutes including both face to face time spent and time spent reviewing documentation, and counseling the patient. Plan Of Treatment Pending Test Test Name Order Date Complete Blood Count Auto Diff 5 Comprehensive [place]. Panel Fast 5 Lipid Panel 12/03/2024 PSA,Total (Free>4and<10) 12/03/2024 Microalbumin, Random 12/03/2024 Hemoglobin A1c 12/03/2024 UA ClnCatch+Micro w/rflx Cult 12/03/2024 Next Appt Details Provider Name:Elmer mellor, 12/10/2024 08:00:00 AM, [address] [place] [address], [address], [place], [place], [id number], Insurance Providers Payer Name Payer Address Payer Phone Subscriber Number Group Number Insured Name Patient Relationship to Insured Coverage Start Date Coverage End Date [employer] [address] [place], [place] [id number] [phone] [id number] JULIEN COLUNGA Self - patient is the insured Medical (General) History Medical History History ICD Code Pre-diabetes R73.03
--- OUTSIDE RECORDS SUMMARY | 2024-12-03 12:10 | XMS_ITS ---
Author Organization Elmer Betancourt MD Address [address] [place] [phone] Care Team Providers Care Farmworker Grain Name Role Phone Elmer Betancourt Primary Care Provider Allergies Allergen (clinical drug ingredient) Drug/Non Drug Allergy documented on EMR Reaction Allergy Type Onset Date Status Substance with sulfonamide structure and antibacterial mechanism of action (substance) sulfa (uncoded) hives Allergy Active Results Component Value Reference Range Notes Hemoglobin A1c Reviewed date:07/09/2024 01:36:45 PM Interpretation: Performing Lab: Notes/Report: Hemoglobin A1c 8.4 Glucose, finger stick Reviewed date:07/09/2024 01:30:17 PM Interpretation: Performing Lab: Notes/Report: Value 156 REASON FOR VISIT 3 month Medications Medication SIG (Take, Route, Frequency, Duration) [...] EVERY 4 HOURS NEEDED for 25 Not-Taking Vital Signs Blood pressure systolic 142 mm Hg 07/09/20 24 Blood pressure diastolic 76 mm Hg 024 Height 70 in 07/09/2024 Weight 222 lbs 07/09/2024 BMI 31.85 kg/m2 07/09/2024 Encounters Encounter Location Date Provider Diagnosis Elmer Betancourt MD [address] [place], [place] [phone] 07/09/2024 Elmer Betancourt Type 2 diabetes mellitus without complication, without long-term current use of insulin E11.9 and Emotional stress R45.7 Assessments Encounter Date Diagnosis (ICD Code) Assessment Notes Treatment Notes Treatment Clinical Notes Section Notes 07/09/2024 Type 2 diabetes mellitus without complication, without long-term current use of insulin (ICD-10 - E11.9) 07/09/2024 Emotional stress (ICD-10 - R45.7) is starting jumping rope to lose weight, enoying new job 07/09/2024 Other Total time spent on the date of the encounter is 35 minutes including both face to face time spent and time spent reviewing documentation, and counseling the patient. Plan Of Treatment Medication Medication Name Sig Start Date Stop Date Notes metFORMIN HCl 500 MG 1 tablet with a amy l Orally twice a day 12/03/2023 Treatment Notes Assessment Notes Emotional stress is starting jumping rope to lose weight, enoying new job Other Total time spent on the date of the encounter is 35 minutes including both face to face time spent and time spent reviewing documentation, and counseling the patient. Next Appt Details Follow Up: 3 Months, Reason: dm Provider Name:Elmer Shoemaker ier, 12/10/2024 08:00:00 AM, [address] [place] [address], [address], [place], [place], [phone], Progress Notes * JULIEN COLUNGA RDOB:[birth year] (39 yo M)Acc No.[id number]:07/09/2024 Progress Notes Patient:?JULIEN COLUNGA Provider:?Elmer Betancourt MD :1985???Age:39 Y???Sex:Male Jaison e:07/09/2024 Address:[address] [place], [place] [phone] Subjective: * Chief Complaints: * ???3 month * HPI: ???Symptom(s):? pt is a 39 yo male here for follow up of dm. likes his new job. * ROS:?General/Constitutional:?Denies?Chills.?Denies?Fatigue.?Denies?Fever.?Denies?Headache.?ENT:?Denies?Sore throat.?Respiratory:?Denies?Cough.?Denies?Shortness of breath at rest.?Denies?Shortness of breath with exertion.?Cardiovascular:?Denies?Chest pain at rest.?Denies?Chest pain with exertion.?Denies?Dizziness.?Denies?Palpitations.?Denies?Shortness of breath.?Gastrointestinal:?Denies?Diarrhea.?Denies?Nausea.? * Medical History:? * Surgical History:? * Hospitalization/Major Diagno stic Procedure:? * Medications:?TakingAtorvasta tin Calcium 40 MG Tablet 1 tablet Orally Once a daymetFORMIN HCl 500 MG Tablet 1 tablet with a meal Orally twice a dayValsartan-hydroCHLOROthiazide 160-12.5 MG Tablet 1 tablet Orally Once a dayTaking Atorvastatin Calcium 40 MG Tablet 1 tablet Orally Once a dayTaking metFORMIN HCl 500 MG Tablet 1 tablet with a meal Orally twice a dayTaking Valsartan- hydroCHLOROthiazide 160-12.5 MG Tablet 1 tablet Orally Once a dayNot-Taking/PRNAlbuterol Sulfate HFA 108 (90 Base) MCG/ACT Aerosol Solution INHALE 1 PUFF INTO THE LUNGS EVERY 4 HOURS NEEDED Ibuprofen 200 MG Tablet 1 tablet with food or milk as needed Orally Three times a dayNot-Taking/PRN Albuterol Sulfate HFA 108 (90 Base) MCG/ACT Aerosol Solution INHALE 1 PUFF INTO THE LUNGS EVERY 4 HOURS NEEDED Not-Taking/PRN Ibuprofen 200 MG Tablet 1 tablet with food or milk as needed Orally Three times a day * Allergies:?sulfa: hivesyes[A llergies Verified] Objective: * Vitals:?Ht: 70, Wt:222, BMI: 31.85, BP:142/76, Repeat BP:130/88. * Examination: ???General Examination: ?GENERAL APPEARANCE:? alert, well hydrated, in no distress .?HEAD:? normocephalic.?SKIN:? good turgor.?HEART:? regular rate and rhythm, no murmurs, rubs, gallops.?LUNGS:? no wheezes, rales, rhonchi, good air movement, clear to auscultation bilaterally.? Assessment: * Assessment: 1.?Type 2 diabetes mellitus without complication, without long-term current use of insulin - E11.9 (Primary)?2.?Emotional stress - R45.7? Plan: * Treatment: ? Value Reference Range ?Hemoglobin A1c 8.4 * Lisa Crane 4 01:36:43 PM EDT > ?LAB: Glucose, finger stick* ? Value Reference Range ?Value 156 * Lisa Crane 4 01:30:15 PM EDT > 2.?Emotional stress? Notes: is starting jumping rope to lose weight, enoying new job??3.?Others? Notes: Total time spent on the date of the encounter is 35 minutes including both face to face timespent and time spent reviewing documentation, and counseling the patient.?? * Procedure Codes:?36897 ASSAY , GLUCOSE, BLOOD QUANT, Modifiers: QW 58329 GLYCATED HEMOGLOBIN TEST, Modifiers: QW * Follow Up:?3 Months (Reason: dm) * * Sign off status: Completed true * Provider:?Elmer Betancourt MD Date:?1 Generated for Shelley alexandre/Lenin/eTransmitting on:?12/03/2024 12:10 PM EST History and Physical Notes * HPI (History of Present Illness) Category Sub-Category Detail Notes Category Not es Symptom(s) pt is a 39 yo m michel here for follow up of dm. likes his new job. Examination Category Sub-Category Detail Notes Category Not es General Examination GENERAL APPEARANCE: alert, w ell hydrated, in no distress HEAD: normocephalic HEART: regular rate and rhy thm, no murmurs, rubs, gallops LUNGS: no wheezes, rales, r honchi, good air movement, clear to auscultation bilaterally SKIN: good turgor
--- OUTSIDE RECORDS SUMMARY | 2024-12-03 12:10 | XMS_ITS | Clinical Summary ---
Author Organization [facility] Address [address] [place] [phone] Phone Care Team Providers Care Awning Erector Name Role Phone Unavailable Primary Care Provider Unavailabl e Immunizations Immunization Administration Dates Next Due DTP 03/09/1988, 4,1983,1982,1983 MMR 05/21/1994,07/02/1984 OPV 03/09/1988, 4,1983,1982 [facility] 5 Lf t etanus toxoid, PF, adsorbed 07/28/1998 Social History Tobacco Use Types Packs/Day Years Used Date Smoking Tobacco: Never Assessed Sex and Gender Information Value Date Recorded Sex Assigned at Not on file Legal Sex Male 3:25 PM EDT Gender Identity Not on file Sexual Orientation Not on file Plan of Treatment Health Maintenance Due Date Last Done Comments Varicella Vaccines (1 of 2 - 13+ 2-dose series) 1996 DTaP,Tdap,and Td Vaccines (6 - Tdap) 07/29/1998 07/28/1998, 03/09/1988, 09/25/1984, Additional history exists Consider Men B Vaccine (1 of 2 - Bexsero 2-dose series) 1999 Hepatitis B Vaccines (1 of 3 - 19+ 3-dose series) 2002 Influenza Vaccines (#1) 2024 COVID-19 Vaccine ( - 2023-25 season) 2024 IPV Vaccines Completed 03/09/1988, 08/31, 1983, Additional history exists MMR Vaccines Completed 05/21/1994, 07/02/1984 HIB Vaccines Aged Out No longer eligi ble based on patient's age to complete this topic HPV Vaccines Aged Out No longer eligi ble based on patient's age to complete this topic Hepatitis A Vaccines Aged Out No long er eligible based on patient's age to complete this topic Men B Vaccine Aged Out No longer elig ible based on patient's age to complete this topic Meningococcal Vaccine Aged Out No brennan mitesh eligible based on patient's age to complete this topic Pneumococcal Vaccine Aged Out No long er eligible based on patient's age to complete this topic
--- OUTSIDE RECORDS SUMMARY | 2024-12-03 12:10 | XMS_ITS ---
Author Organization Elmer Betancourt MD Address [address] [place] [phone] Care Team Providers Care Senior Oracle Pl Sql Developer Name Role Phone Elmer Betancourt Primary Care Provider Allergies Allergen (clinical drug ingredient) Drug/Non Drug Allergy documented on EMR Reaction Allergy Type Onset Date Status Substance with sulfonamide structure and antibacterial mechanism of action (substance) sulfa (uncoded) hives Allergy Active REASON FOR VISIT 3 MO F/U Encounters Encounter Location Date Provider Diagnosis Elmer Betancourt MD [address] [facility] [address] [place] [phone] 10/09/2024 Elmer Betancourt Type 2 diabetes mellitus without complication, without long-term current use of insulin E11.9 Assessments Encounter Date Diagnosis (ICD Code) Assessment Notes Treatment Notes Treatment Clinical Notes Section Notes 10/09/2024 Type 2 diabetes mellitus without complication, without long-term current use of insulin (ICD-10 - E11.9) Plan Of Treatment Pending Test Test Name Order Date Hemoglobin A1c 10/09/2024 Glucose, finger stick 10/09/2024 Next Appt Details Provider Name:Elmer goins, 12/10/2024 08:00:00 AM, [address] [facility], [address], [place], [place], [phone], Progress Notes * JULIEN COLUNGA RDOB:[birth year] (39 yo M)Acc No.[id number]:10/09/2024 Progress Notes Patient:?JULIEN COLUNGA Provider:?Elmer Betancourt MD :1985???Age:39 Y???Sex:Male Jaison e:10/09/2024 Address:[address] [place], [place] [phone] Subjective: * Chief Complaints: * ???1. 3 MO F/U. * ROS:?General/Constitutional:?Denies?Chills.?Denies?Fatigue.?Denies?Fever.?Denies?Headache.?ENT:?Denies?Sore throat.?Respiratory:?Denies?Cough.?Denies?Shortness of breath at rest.?Denies?Shortness of breath with exertion.?Gastrointestinal:?Denies?Diarrhea.?Denies?Nausea.? * Medical History:?Pre-diabete s. * Allergies:?Sulfa: Hives. Objective: * Vitals:? Assessment: * Assessment: 1.?Type 2 diabetes mellitus without complication, without long-term current use of insulin - E11.9??? Plan: * Treatment: * Procedure Codes:?23250 ASSAY , GLUCOSE, BLOOD QUANT, Modifiers: QW , 84414 GLYCATED HEMOGLOBIN TEST, Modifiers: QW * * The named appointment provid er may or may not be the originator of this progress note, and it is not deemed complete until electronically signed by the appointment provider. Sign off status: Pending * Provider:?Elmer Betancourt MD Date:?0 10/09/2024 Generated for Timmyi baldomero/Failag/eTransmitting on:?12/03/2024 12:10 PM EST
--- OUTSIDE RECORDS SUMMARY | 2024-12-03 12:10 | XMS_ITS ---
Author Organization Elmer Betancourt MD Address [address] [place] [phone] Care Team Providers Care Wind Operations Manager Name Role Phone Elmer Betancourt Primary Care Provider Results Component Value Reference Range Notes Complete Blood Count Auto Di ff (Not yet reviewed by provider) Interpretation: Performing Lab:[facility], [address] [place] [phone] Notes/Report: White Blood Count 7.8 4.8-10.8 X10*3/uL [...] NRBC Abs Auto 0.000 0.0-0.012 X10*3/uL Comprehensive [place]. Panel Fa st (Not yet reviewed by provider) Interpretation: Performing Lab:[facility], [address] [place] [phone] Notes/Report: Sodium 140 135-145 mmol/L Potassium 3.7 [...] yet reviewe d by provider) Interpretation: Performing Lab:[facility], [address] [place] [phone] Notes/Report: Triglycerides 504 <150 mg/dL Desirable Triglyceride: [...] t yet reviewed by provider) Interpretation: Performing Lab:[address] [phone] Notes/Report: PSA,Total (Free>4and<10) 0.54 0.00-4.00 ng/mL A [...] yet revi ewed by provider) Interpretation: Performing Lab:[address] [phone] Notes/Report: Hemoglobin A1c % 9.7 <6.0 % [...] average glucose, using the formula of the [id number] Average Glucose study (ADAG), Diabetes Care, Vol.31,#8, 2007 UA ClnCatch+Micro w/rflx Cul t (Not yet reviewed by provider) Interpretation: Performing Lab:[facility], [address] [place] [phone] Notes/Report: Urine, Clean Catch Color Urine Yellow Appearance Urine Hazy PH 6.0 5.0-9.0 Glucose Urine UA 250 Negative mg/dL Urine Blood Negative Negative Specific Lucas - Urine >= 1.030 1.005-1.025 Urine Protein 30 (1+) Neg-Trace mg/dL Urine Ketones Trace Negative mg/dL Nitrite Urine Negative Negative Leukocyte Esterase Urine Negative Negative RBC Urine 0-2 0-2 /HPF WBC Urine 0-5 0-5 /HPF Squamous Epithelial Cell Urine 0-2 0-2 /HPF Bacteria Urine Trace None Seen Hyaline Casts Urine 0-2 0-2 /LPF REASON FOR VISIT FASTING LABS Encounters Encounter Location Date Provider Diagnosis Elmer Betancourt MD [address] [place] [address] [address] [place], [place] [phone] 12/03/2024 Elmer Betancourt Blood tests for routine general physical examination Z00.00 ; Low HDL (under 40) E78.6 ; Essential hypertension I10 and Type 2 diabetes mellitus without complication, without long-term current use of insulin E11.9 Assessments Encounter Date Diagnosis (ICD Code) Assessment Notes Treatment Notes Treatment Clinical Notes Section Notes 12/03/2024 Blood tests for routine general physical examination (ICD-10 - Z00.00) 12/03/2024 Low HDL (under 40) (ICD-10 - E78.6) 12/03/2024 Essential hypertension (ICD-10 - I10) 12/03/2024 Type 2 diabetes mellitus without complication, without long-term current use of insulin (ICD-10 - E11.9) Plan Of Treatment Pending Test Test Name Order Date Complete Blood Count Auto Diff Comprehensive [place]. Panel Fast Lipid Panel 12/03/2024 PSA,Total (Free>4and<10) 12/03/2024 Microalbumin, Random 12/03/2024 Hemoglobin A1c 12/03/2024 UA ClnCatch+Micro w/rflx Cult 12/03/2024 Next Appt Details Provider Name:Elmer Shoemaker ier, 12/10/2024 08:00:00 AM, [address] [place] [address], [address], [place], [place], [phone], Progress Notes * JULIEN COLUNGA RDOB:[birth year] (39 yo M)Acc No.[id number]:12/03/2024 Progress Note Patient:?JULIEN COLUNGA Provider:?Elmer Betancourt MD :1985???Age:39 Y???Sex:Male Jaison e:12/03/2024 Address:[address] [place], [place] [phone] Subjective: * Chief Complaints: * ???1. FASTING LABS. * Medical History:? Objective: * Vitals:? Assessment: * Assessment: 1.?Blood tests for routine g eneral physical examination - Z00.00 (Primary)???2.?Low HDL (under 40) - E78.6???3.?Essential hypertension - I10???4.?Type 2 diabetes mellitus without complication, without long-term current use of insulin - E11.9??? Plan: * Treatment: 2.?Low HDL (under 40)?LAB: Complete Blood Count Auto Diff (Collection Date & Time - 12/03/2024 07:00 AM) ?LAB: Comprehensive [place]. Panel Fast (Collection Date & Time - 12/03/2024 07:00 AM) ?LAB: Lipid Panel (Collection Date & Time - 12/03/2024 07:00 AM) ?LAB: PSA,Total (Free>4and<10) (Collection Date & Time - 12/03/2024 07:00 AM) ?LAB: Microalbumin, Random ?LAB: Hemoglobin A1c (Collection Date & Time - 12/03/2024 07:00 AM) ?LAB: UA ClnCatch+Micro w/rflx Cult (Collection Date & Time - 12/03/2024 07:00 AM) 3.?Essential hypertension?LAB: Complete Blood Count Auto Diff (Collection Date & Time - 12/03/2024 07:00 AM) ?LAB: Comprehensive [place]. Panel Fast (Collection Date & Time - 12/03/2024 07:00 AM) ?LAB: Lipid Panel (Collection Date & Time - 12/03/2024 07:00 AM) ?LAB: PSA,Total (Free>4and<10) (Collection Date & Time - 12/03/2024 07:00 AM) ?LAB: Microalbumin, Random ?LAB: Hemoglobin A1c (Collection Date & Time - 12/03/2024 07:00 AM) ?LAB: UA ClnCatch+Micro w/rflx Cult (Collection Date & Time - 12/03/2024 07:00 AM) 4.?Type 2 diabetes mellitus without complication, without long-term current use of insulin?LAB: Complete Blood Count Auto Diff (Collection Date & Time - 12/03/2024 07:00 AM) ?LAB: Comprehensive [place]. Panel Fast (Collection Date & Time - 12/03/2024 07:00 AM) ?LAB: Lipid Panel (Collection Date & Time - 12/03/2024 07:00 AM) ?LAB: PSA,Total (Free>4and<10) (Collection Date & Time - 12/03/2024 07:00 AM) ?LAB: Microalbumin, Random ?LAB: Hemoglobin A1c (Collection Date & Time - 12/03/2024 07:00 AM) ?LAB: UA ClnCatch+Micro w/rflx Cult (Collection Date & Time - 12/03/2024 07:00 AM) * Procedure Codes:?37883 VENIP UNCT, ROUTINE* * * The named appointment provid er may or may not be the originator of this progress note, and it is not deemed complete until electronically signed by the appointment provider. Sign off status: Pending * Provider:?Elmer Betancourt MD Date:?0 12/03/2024 Generated for Timmyi ng/Маринаg/eTransmitting on:?12/03/2024 12:09 PM EST
[2024-12-03 12:11] LABS: Microalbum/Creatinine Ratio Ur 31.5 ug/mg cr (<30)
== END 2024-12-03 10:17 | disposition home or self-care (01) ==
LOC: HO.LNP 10:16
PROVIDERS: Visit Provider Internal Medicine
DX: Z00.00 Encounter for general adult medical examination without abnormal findings (principal); Z12.5 Encounter for screening for malignant neoplasm of prostate; E78.6 Lipoprotein deficiency; E11.9 Type 2 diabetes mellitus without complications
CPT/HCPCS: 80053; 80061; 81001; 82043; 82570; 83036; 84153; 85025

== ENCOUNTER 2025-03-12 09:48 | Outpatient (REF) | payer BC, SELFPAY ==
--- OUTSIDE RECORDS SUMMARY | 2025-03-12 10:21 | XMS_ITS ---
Author Organization Elmer Betancourt MD Address [address] [place] [phone] Care Team Providers Care Head Charger Name Role Phone Elmer Betancourt Primary Care Provider Results Component Value Reference Range Notes Complete Blood Count Auto Di ff Reviewed date:12/03/2024 12:32:00 PM Interpretation: Performing Lab:[facility], [address] [place] [phone] Notes/Report: White Blood Count 7.8 4.8-10.8 X10*3/uL [...] NRBC Abs Auto 0.000 0.0-0.012 X10*3/uL Comprehensive [place]. Panel Fa st Reviewed date:12/03/2024 12:39:37 PM Interpretation: Performing Lab:[facility], [address] [place] [phone] Notes/Report: Sodium 140 135-145 mmol/L Potassium 3.7 [...] Alkaline Phosphatase 125 39-117 U/L Lipid Panel Reviewed date:12/03/2024 12:32:11 PM Interpretation: Performing Lab:[address] [phone] Notes/Report: Triglycerides 504 <150 mg/dL Desirable Triglyceride: [...] in patients with liver disease. PSA,Total (Free>4and<10) Reviewed date:12/03/2024 12:31:36 PM Interpretation: Performing Lab:[facility], [address] [place] [phone] Notes/Report: PSA,Total (Free>4and<10) 0.54 0.00-4.00 ng/mL A [...] Rowe Alinity i Chemiluminescent Microparticle Immunoassay (CMIA) Microalbumin, Random Reviewed date:12/03/2024 12:31:44 PM Interpretation: Performing Lab:[facility], [address] [place] [phone] Notes/Report: Creatinine Urine 640.09 Microalbumin Urine 202.0 Microalbum/Creatinine Ratio Ur 31.5 <30 ug/mg cr Albumin/Creatinine Ratio Reference Ranges: Normal: < 30 ug/mg creatinine Microalbuminuria: 30 - 300 ug/mg creatinine Clinical Albuminuria: > 300 ug/mg creatinine Hemoglobin A1c Reviewed date:12/03/2024 12:31:03 PM Interpretation: Performing Lab:[facility], [address] [place] [phone] Notes/Report: Hemoglobin A1c % 9.7 <6.0 % [...] average glucose, using the formula of the F1Z-Reiibts Average Glucose study (ADAG), Diabetes Care, Vol.31,#8, Apr. 2007 UA ClnCatch+Micro w/rflx Cul t Reviewed date:12/03/2024 12:39:55 PM Interpretation: Performing Lab:[facility], [address] [place] [phone] Notes/Report: Urine, Clean Catch Color Urine Yellow Appearance Urine Hazy PH 6.0 5.0-9.0 Glucose Urine UA 250 Negative mg/dL Urine Blood Negative Negative Specific Benedict - Urine >= 1.030 1.005-1.025 Urine Protein [...] Date Provider Diagnosis Elmer Betancourt MD [address] [place], [place] [phone] 12/03/2024 Elmer Betancourt Blood tests for routine [...] insulin (ICD-10 - E11.9) Plan Of Treatment Next Appt Details Provider Name:Elmer Shoemaker ier, 03/16/2025 09:15:00 AM, [facility], Suite [facility], [place], [place], [phone], Provider Name:Elmer Shoemaker ier, 06/10/2025 07:45:00 AM, [address] [place] [address], Suite [facility], [place], [place], [phone], Provider Name:Elmer Shoemaker ier, 06/17/2025 07:30:00 AM, [address] [place] [address], [address] [place] [address], [phone], Provider Name:Elmer mellor, 12/09/2025 07:00:00 AM, [address] [place] [address], Suite [facility], [place], [place], [phone], Provider Name:Elmer mellor, 12/16/2025 08:00:00 AM, [address] [place] [address], [address] [place] [address], [phone], Progress Notes * JULIEN COLUNGA RDOB:[birth year] (40 yo M)Acc No.[id number]:12/03/2024 Progress Note Patient:?KEANU JULIEN Wong Provider:?Elmer Betancourt MD :1985???Age:39 Y???Sex:Male Jaison e:12/03/2024 Address:[address] [place], [place] [phone] Subjective: * Chief Complaints: * ???1. FASTING [...] Time - 12/03/2024 07:00 AM) ?LAB: [facility]. Panel Fast (Collection Date & Time - 12/03/2024 07:00 AM) ?LAB: Lipid Panel (Collection Date & Time - 12/03/2024 07:00 AM) ?LAB: PSA,Total (Free>4and<10) (Collection Date & Time - 12/03/2024 07:00 AM) ?LAB: Microalbumin, Random (Collection Date & Time - 12/03/2024 07:00 AM) ?LAB: Hemoglobin A1c (Collection Date & Time - 12/03/2024 07:00 AM) ?LAB: UA ClnCatch+Micro w/rflx Cult (Collection Date & Time - 12/03/2024 07:00 AM) 3.?Essential hypertension?LAB: Complete Blood Count Auto Diff (Collection Date & Time - 12/03/2024 07:00 AM) ?LAB: [facility]. Panel Fast (Collection Date & Time - 12/03/2024 07:00 AM) ?LAB: Lipid Panel (Collection Date & Time - 12/03/2024 07:00 AM) ?LAB: PSA,Total (Free>4and<10) (Collection Date & Time - 12/03/2024 07:00 AM) ?LAB: Microalbumin, Random (Collection Date & Time - 12/03/2024 07:00 AM) ?LAB: Hemoglobin A1c (Collection Date & Time - 12/03/2024 07:00 AM) ?LAB: UA ClnCatch+Micro w/rflx Cult (Collection Date & Time - 12/03/2024 07:00 AM) 4.?Type 2 diabetes mellitus without complication, without long-term current use of insulin?LAB: Complete Blood Count Auto Diff (Collection Date & Time - 12/03/2024 07:00 AM) ?LAB: Comprehensive [place]. Panel Fast (Collection Date & Time - 12/03/2024 07:00 AM) ?LAB: Lipid Panel (Collection Date & Time - 12/03/2024 07:00 AM) ?LAB: PSA,Total (Free>4and<10) (Collection Date & Time - 12/03/2024 07:00 AM) ?LAB: Microalbumin, Random (Collection Date & Time - 12/03/2024 07:00 AM) ?LAB: Hemoglobin A1c (Collection Date & Time - 12/03/2024 07:00 AM) ?LAB: UA ClnCatch+Micro w/rflx Cult (Collection Date & Time - 12/03/2024 07:00 AM) * Procedure Codes:?56607 VENIP UNCT, ROUTINE* * * The named appointment provid er may or may not be the originator of this progress note, and it is not deemed complete until electronically signed by the appointment provider. Sign off status: Pending * Provider:?Elmer Betancourt MD Date:?0 12/03/2024 Generated for Shelley alexandre/Lenin/eTshraddhasmitting on:?03/12/2025 10:21 AM EDT
[2025-03-12 10:48] LABS: Estimated Average Glucose 177 mg/dL; Hemoglobin A1c % 7.8 % (<6.0); Total Hemoglobin (HGBA1C) 3769.0517 umol/L
[2025-03-12 10:55] LABS: Alanine Aminotransferase 36 U/L (0-40); Albumin Level 4.4 g/dL (3.5-5.0); Alkaline Phosphatase 100 U/L (39-117); Aspartate Amino Transferase 39 U/L (5-37); Bilirubin Direct 0.3 mg/dL (0.0-0.5); Cholesterol 132 mg/dL (<200); HDL Cholesterol 24 mg/dL (>40); Triglycerides 509 mg/dL (<150)
== END 2025-03-12 09:49 | disposition home or self-care (01) ==
LOC: HO.LNP 09:48
PROVIDERS: Visit Provider Internal Medicine
DX: E11.9 Type 2 diabetes mellitus without complications (principal)
CPT/HCPCS: 80061; 80076; 83036

== ENCOUNTER 2025-06-10 12:39 | Outpatient (REF) | payer BC, SELFPAY ==
--- OUTSIDE RECORDS SUMMARY | 2024-12-10 04:00 | XMS_ITS ---
Author Organization Elmer Betancourt MD Address [address] [place] [phone] Care Team Providers Care [facility] Chaplain Name Role Phone Elmer Betancourt Primary Care Provider Allergies Allergen (clinical drug ingredient) Drug/Non Drug Allergy documented on EMR Reaction Allergy Type Onset Date Status Substance with sulfonamide structure and antibacterial mechanism of action (substance) sulfa (uncoded) hives Allergy Active Results Component Value Reference Range Notes Occult Blood, Stool, Guaiac Reviewed date:12/10/2024 10:22:52 AM Interpretation:Negative Performing Lab: Notes/Report: Negative Occult Blood, Stool, Guaiac Neg Glucose, finger stick Reviewed date:12/10/2024 07:52:19 AM Interpretation: Performing Lab: Notes/Report: Value 224 REASON FOR VISIT ANNUAL EXAM Medications Medication SIG (Take, Route, Frequency, Duration) Notes Start Date End Date Status metFORMIN HCl ER 750 MG 1 tablet with ev ening meal Orally Once a day for 30 days 12/10/2024 Active Atorvastatin Calcium 40 MG 1 tablet Orally Once a day 12/03/2023 Active Albuterol Sulfate HFA 108 (90 Base) MCG/ACT INHALE 1 PUFF INTO THE LUNGS EVERY 4 HOURS NEEDED for 25 Not-Taking Ibuprofen 200 MG 1 tablet with food o r milk as needed Orally Three times a day Not-Taking Valsartan-hydroCHLOROthia zide 160-12.5 MG 1 tablet Orally Once a day 12/03/2023 Active Social History Tobacco Use: Social History Observation [...] Never (0 point) Points 1 Interpretation Negative Vital Signs Blood pressure systolic 120 mm Hg 12/11/19 25 Blood pressure diastolic 84 mm Hg 025 Height 70 in 12/10/2024 Weight 215 lbs 12/10/2024 BMI 30.85 kg/m2 12/10/2024 weight is down 7 pounds [facility] e 07-09-24 Encounters Encounter Location Date Provider Diagnosis Elmer Betancourt MD [address] [place] [phone] 12/10/2024 Elmer Betancourt Type 2 diabetes mellitus without complication, without long-term current use of insulin E11.9 ; Annual physical exam Z00.00 ; Essential hypertension I10 ; Elevated LFTs R79.89 ; Colon cancer screening Z12.11 ; Depression screening Z13.31 and Low HDL (under 40) E78.6 Assessments Encounter Date Diagnosis (ICD Code) Assessment Notes Treatment Notes Treatment Clinical Notes Section Notes 12/10/2024 Type 2 diabetes mellitus without complication, without long-term current use of insulin (ICD-10 - E11.9) patient verbalized understanding of change in medication dose 12/10/2024 Annual physical exam (ICD-10 - Z00.00) labs reviewed and discussed with patient 12/10/2024 Essential hypertension (ICD-10 - I10) doing well, will continue current regiment 12/10/2024 Elevated LFTs (ICD-10 - R79.89) stable, will continue to monitor 12/10/2024 Colon cancer screening (ICD-10 - Z12.11) guaiac negtive 12/10/2024 Depression screening (ICD-10 - Z13.31) negative screen 12/10/2024 Low HDL (under 40) (ICD-10 - E78.6) Plan Of Treatment Medication Medication Name Sig Start Date Stop Date Notes metFORMIN HCl ER 750 MG 1 tablet with ev ening meal Orally Once a day for 30 days 12/10/2024 metFORMIN HCl 500 MG 1 tablet with a amy l Orally twice a day 12/03/2023 Atorvastatin Calcium 40 MG 1 tablet Orally Once a day 01/2024 Valsartan-hydroCHLOROthiazid e 160-12.5 MG 1 tablet Orally Once a day 12/03/2023 Treatment Notes Assessment Notes Type 2 diabetes mellitus wit hout complication, without long-term current use of insulin patient verbalized understanding of koenig ge in medication dose Annual physical exam labs reviewed and d iscussed with patient Essential hypertension doing well, will continue current regiment Elevated LFTs stable, will continu e to monitor Colon cancer screening guaiac negtive Depression screening negative screen Next Appt Details Follow Up: 3 Months, Reason: Provider Name:Elmer goins, 06/17/2025 07:30:00 AM, [address] [place] [address], [address], [phone], Provider Name:Elmer goins, 12/09/2025 07:00:00 AM, [address] [place] [address], [address], [phone], Provider Name:Elmer gonis, 12/16/2025 08:00:00 AM, [address] [place] [address], [address], [phone], Progress Notes * JULIEN COLUNGA RDOB:[birth year] (39 yo M)Acc No.[id number]:12/10/2024 Progress Notes Patient: JULIEN MAY Provider: Deya Betancourt MD :1985 A ge:39 Y S ex:Male Date:12/10/2024 Address:[address] [place], [place] [phone] Subjective: * Chief Complaints: * A NNUAL EXAM * HPI: D epression Screening: PHQ-9 L ittle interest or pleasure in doing things N ot at all, F eeling down, depressed, or hopeless N ot at all, T rouble falling or staying asleep, or sleeping too much N ot at all, F eeling tired or having little energy N ot at all, P oor appetite or overeating N ot at all, F eeling bad about yourself or that you are a failure, or have let yourself or your family down N ot at all, T rouble concentrating on things, such as reading the newspaper or watching television N ot at all, M oving or speaking so slowly that other people could have noticed; or the opposite, being so fidgety or restless that you have been moving around a lot more than usual N ot at all, T houghts that you would be better off or of hurting yourself in some way N ot at all, T otal Score 0 . I nterpretation and Intervention D epression Screening Findings N egative, F ollow-Up for Depression : review of PHQ-9 found negative result, no follow-up needed. C ommunication Needs: Communication Needs D oes the patient have a hearing impairment N o, D oes the patient have a vision impairment? Y es, I f yes, what is the vision impairment? G lasses, D oes the patient have a cognition impairment? N o. S DULCE Questions: SDOH Questions I n the past year have you been worried about losing housing? N o, I n the past year have you or any family members you live with been unable to get any of the following when it was really needed? Check all that apply: N one. S ymptom(s): patient is a 39 yo male here for annaul visit with review of recent labs and follow up of chronic issues.has been dieting and walking./ not eating fast food. * ROS: G eneral/Constitutional: Patient denies h eadache. C hange in appetite d enies. C hills d enies. F ever d enies. O phthalmologic: Blurred vision d enies. D ischarge d enies. P ain d enies. E NT: Decreased hearing d enies. S ore throat d enies.?Swollen glands d enies. E ndocrine: Cold intolerance d enies. E xcessive thirst d enies. H eat intolerance d enies. W eight loss d enies. R espiratory: Cough d enies. S hortness of breath at rest d enies. S hortness of breath with exertion d enies. W heezing d enies. C ardiovascular: Chest pain at rest d enies. C hest pain with exertion?denies. I rregular heartbeat d enies. S hortness of breath d enies. ? G astrointestinal: Abdominal pain d enies. C hange in bowel habits d enies. D iarrhea d enies. N ausea d enies. R ectal bleeding d enies. V omiting d enies . G enitourinary: Blood in urine d enies. D ifficulty urinating d enies. F requent urination d enies. M usculoskeletal: Patient denies m uscle aches. P ainful joints d enies. W eakness d enies. P eripheral Vascular: Patient denies r ed and blue toes. S kin: Dry skin d enies. I tching d enies. D enies?Mole(s), changes in moles, new moles or any lesions of concern. D enies P hotosensitivity. R jaimie d enies. N eurologic: Dizziness d enies. F ainting d enies. H eadache?denies. * Medical History: * Surgical History: * Hospitalization/Major Diagno stic Procedure: * Family History: F ather: alive 70 yrs. M other: alive 70 yrs. 1 brother(s) . . Father- Healthy Mother CVA, Denies mental health/substance abuse family history, No pertinent family medical history. * Social History: T obacco Use: T obacco Use/Smoking P atient is a n onsmoker, A dditional Findings: Tobacco Non-User C urrent non-smoker, currently using no form of tobacco. D rugs/Alcohol: A lcohol Screen D id you have a drink containing alcohol in the past year? Y es, H ow often did you have a drink containing alcohol in the past year? M onthly or less (1 point), H ow many drinks did you have on a typical day when you were drinking in the past year? 1 or 2 drinks (0 point), H ow often did you have 6 or more drinks on one occasion in the past year? N ever (0 point), P oints 1 , I nterpretation N egative. M iscellaneous: C affeine: yes, frequency:, 1-2 cups per day. Children: no. Community involvements: yes. Exercise: yes, walks 2 miles 2-3 times a week. Home smoke detector use: yes. Marital status: single. Occupation: works as [employer] Travel outside of the [place]: no. * Medications: T akingAtorvastatin Calcium 40 MG Tablet 1 tablet Orally Once a day Valsartan-hydroCHLOROthiazide 160-12.5 MG Tablet 1 tablet Orally Once a day metFORMIN HCl 500 MG Tablet 1 tablet with a meal Orally twice a day Taking Atorvastatin Calcium 40 MG Tablet 1 tablet Orally Once a day Taking Valsartan-hydroCHLOROthiazide 160-12.5 MG Tablet 1 tablet Orally Once a day Taking metFORMIN HCl 500 MG Tablet 1 tablet with a meal Orally twice a day Not-Taking/PRNAlbuterol Sulfate HFA 108 (90 Base) MCG/ACT Aerosol Solution INHALE 1 PUFF INTO THE LUNGS EVERY 4 HOURS NEEDED Ibuprofen 200 MG Tablet 1 tablet with food or milk as needed Orally Three times a day Medication List reviewed and reconciled with the patientNot-Taking/PRN Albuterol Sulfate HFA 108 (90 Base) MCG/ACT Aerosol Solution INHALE 1 PUFF INTO THE LUNGS EVERY 4 HOURS NEEDED Not-Taking/PRN Ibuprofen 200 MG Tablet 1 tablet with food or milk as needed Orally Three times a day Medication List reviewed and reconciled with the patient * Allergies: s ulfa: hivesyes[Allergies Verified] Objective: * Vitals: H t: 70, Wt: 215, BMI:30.85, BP:120/84, Wt-k.52. weight is down 7 pounds since 07-09-24. * P ast Orders: L ab:Microalbumin, Random (Order Date - 12/03/2024) (Collection Date & Time - 12/03/2024 07:00 AM) Value Reference Range Creatinine Urine 640.09 - mg/dL Microalbumin Urine 202.0 - mg/L Microalbum Creatinine Ratio Ur 31.5 H <30 - ug/ mg cr L ab:Hemoglobin A1c (Order Date - 12/03/2024) (Collection Date & Time - 12/03/2024 07:00 AM) Value Reference Range Hemoglobin A1c % 9.7 H <6.0 - % Estimated Average Glucose 232 - mg/dL L ab:Complete Blood Count Auto Diff (Order Date - 12/03/2024) (Collection Date & Time - 12/03/2024 07:00 AM) Value Reference Range White Blood Count 7.8 4.8-10.8 - X10*3/uL Red Blood Count 5.18 4.60-5.80 - X10*6/uL Hemoglobin 15.5 14.0-18.0 - g/dl Hematocrit 45.4 42.0-52.0 - % Mean Corpuscular Volume 87.6 80.0-98.0 - fL Mean Corpuscular Hemoglobin 29.9 27.0-33.0 - pg Mean Corpuscular HGB Conc 34.1 31.0-36.0 - g/ dl Red Cell Distribution Width 12.8 11.0-16.0 - % Platelet Count 232 160-400 - X10*3/uL Mean Platelet Volume 12.3 9.4-12.4 - fL Neutrophils Percent Auto 59.1 45-73 - % Imm Gran Pct Auto 0.3 0.0-0.4 - % Lymphocytes Percent Auto 28.4 20-40 - % Monocytes Percent Auto 8.7 2-11 - % Eosinophils Percent Auto 2.2 0-4 - % Basophils Percent Auto 1.3 0-2 - % NRBC Pct Auto 0.0 0.0-0.2 - /100WBC Neutrophils Absolute Auto 4.6 2.0-8.3 - x10* 3/uL Imm Gran Abs Auto 0.02 0.00-0.03 - X10*3/uL Lymphocytes Absolute Auto 2.2 1.2-4.9 - X10* 3/uL Monocytes Absolute Auto 0.7 0.1-1.2 - X10*3/ uL Eosinophils Absolute Auto 0.2 0.0-0.4 - X10* 3/uL Basophils Absolute Auto 0.1 0.0-0.2 - X10*3/ uL NRBC Abs Auto 0.000 0.0-0.012 - X10*3/uL L ab:UA ClnCatch+Micro w/rflx Cult (Order Date - 12/03/2024) (Collection Date & Time - 12/03/2024 07:00 AM) Value Reference Range Color Urine Yellow - Appearance Urine Hazy - PH 6.0 5.0-9.0 - Glucose Urine UA 250 A Negative - mg/dL Urine Blood Negative Negative - Specific [place] - Urine >= 1.030 H 1.005-1.025 - Urine Protein 30 (1+) A Neg-Trace - mg/dL Urine Ketones Trace Negative - mg/dL Nitrite Urine Negative Negative - Leukocyte Esterase Urine Negative Negative - RBC Urine 0-2 0-2 - /HPF WBC Urine 0-5 0-5 - /HPF Squamous Epithelial Cell Urine 0-2 0-2 - /HP F Bacteria Urine Trace None Seen - Hyaline Casts Urine 0-2 0-2 - /LPF L ab:Comprehensive [place]. Panel Fast (Order Date - 12/03/2024) (Collection Date & Time - 12/03/2024 07:00 AM) Value Reference Range Sodium 140 135-145 - mmol/L Bilirubin Total 1.1 H 0.0-1.0 - mg/dL Aspartate Amino Transferase 58 H 5-37 - U/L Alanine Aminotransferase 74 H 0-40 - U/L Total Protein 7.8 6.5-8.0 - g/dL Albumin Level 4.3 3.5-5.0 - g/dL Alkaline Phosphatase 125 H 39-117 - U/L Potassium 3.7 3.3-5.1 - mmol/L Chloride 102 96-108 - mmol/L Carbon Dioxide 27 22-29 - mmol/L Anion Gap 15 12-20 - Blood Urea Nitrogen 12 9-16 - mg/dL Creatinine 0.99 0.5-1.4 - mg/dL Estimated Glomerular Filt Rate > 60 - Glucose Fasting 237 H 60-99 - mg/dL Calcium 9.4 8.4-10.2 - mg/dL L ab:Lipid Panel (Order Date - 12/03/2024) (Collection Date & Time - 12/03/2024 07:00 AM) Value Reference Range Triglycerides 504 H <150 - mg/dL Cholesterol 120 <200 - mg/dL LDL Cholesterol Calculated TNP <100 - mg/dL HDL Cholesterol 20 L >40 - mg/dL L ab:PSA,Total (Free>4and<10) (Order Date - 12/03/2024) (Collection Date & Time - 12/03/2024 07:00 AM) Value Reference Range PSA,Total (Free>4and<10) 0.54 0.00-4.00 - ng/ mL * Examination: G eneral Examination: GENERAL APPEARANCE: w ell developed, well nourished, in no acute distress. HEAD: n ormocephalic, atraumatic. EYES: p upils equal, round, reactive to light and accommodation, sclera non-icteric. EARS: n ormal. ORAL CAVITY: m ucosa moist. THROAT: c lear. NECK/THYROID: n ariadne supple, full range of motion, no cervical lymphadenopathy, no bruits. SKIN: w arm and dry, no suspicious lesions, abnormal with multiple dysplastic nevi none of which look suspicious. HEART: r egular rate and rhythm, S1, S2 normal, no murmurs.? LUNGS: c lear to auscultation bilaterally. ABDOMEN: s oft, nontender, nondistended, bowel sounds present, normal, no organomegaly , no masses palpable. RECTAL EXAM: n ormal tone, no external hemorrhoids, no masses palpable, prostate normal, stool guaiac negative. MALE GENITOURINARY: c ircumcised, no penile lesions or discharge, no testicular mass, testes descended bilaterally has a benign appearing dermal nevus to the rt of his penis. EXTREMITIES: n o clubbing, cyanosis, or edema. NEUROLOGIC: n onfocal, motor strength normal upper and lower extremities, sensory exam intact. Assessment: * Assessment: 1. A nnual physical exam - Z00.00 (Primary) 2 . T ype 2 diabetes mellitus without complication, without long-term current use of insulin - E11.9 3 . E ssential hypertension - I10 4 . E levated LFTs - R79.89 5 . C olon cancer screening - Z12.11 6 . D epression screening - Z13.31 7 . L ow HDL (under 40) - E78.6 Plan: * Treatment: 2. T ype 2 diabetes mellitus without complication, without long-term current use of insulin Stop metFORMIN HCl Tablet, 500 MG, 1 tablet with a meal, Orally, twice a day; S tart metFORMIN HCl ER Tablet Extended Release 24 Hour, 750 MG, 1 tablet with evening meal, Orally, Once a day, 30 days, 30, Refills 5. L AB: Glucose, finger stick (Collection Date & Time - 12/10/2024) Value Reference Range V alue 224 ?LAB: Liver Panel (Ordered for 03/12/2025) ?LAB: Lipid Panel (Ordered for 03/12/2025) ?LAB: Hemoglobin A1c (Ordered for 03/12/2025) Notes: patient verbalized understanding of change in medication dose?? 3.?Essential hypertension? Continue Valsartan-hydroCHLOROthiazide Tablet, 160-12.5 MG, 1 tablet, Orally, Once a day.? Notes: doing well, will continue current regiment??4.?Elevated LFTs? Notes: stable, will continue to monitor??5.?Colon cancer screening?LAB: Occult Blood, Stool, Guaiac (Collection Date & Time - 12/10/2024)? Negative* Value Reference Range O ccult Blood, Stool, Guaiac Neg Notes: guaiac negtive??6.?Depression screening? Notes: negative screen??7.?Low HDL (under 40)? Continue Atorvastatin Calcium Tablet, 40 MG, 1 tablet, Orally, Once a day.?? * Procedure Codes: 8 2947 ASSAY, GLUCOSE, BLOOD QUANT, Modifiers: QW 86343 TEST FOR BLOOD, FECES * Preventive Medicine: Counseling: C are goal follow-up plan: C ounseling for abnormal BMI provided?Yes, A vera Normal BMI Follow-up G iving encouragement to exercise. Diabetes Care Plan: P atient Lifestyle Goals N eeds to maintain diet control.?Treatment Goals A 1C< 7. B arriers N eeds better diet control. S elf-Managment Plan I ncrease light exercise to 3 times a week for 30 minutes. E xpected Outcome m aintaining stable blood sugar levels within a target range. * Follow Up: 3 Months * * Sign off status: Completed true * Provider: Deya Betancourt MD Date: 0 12/10/2024 Generated for Shelley alexandre/Lenin/Xiomara on: 0 06/10/2025 04:52 PM EDT History and Physical Notes * HPI (History of Present Illness) Category Sub-Category Detail Notes Category Not es Symptom(s) patient is a 39 yo male here for annaul visit with review of recent labs and follow up of chronic issues.has been dieting and walking./ not eating fast food. Depression Screening PHQ-9 Little inte rest or pleasure in doing things: Not at all Feeling down, depressed, or hopeless: No t at all Trouble falling or staying asleep, or sl eeping too much: Not at all Feeling tired or having little energy: N ot at all Poor appetite or overeating: Not at all Feeling bad about yourself o r that you are a failure, or have let yourself or your family down: Not at all Trouble concentrating on thi ngs, such as reading the newspaper or watching television: Not at all Moving or speaking so slowly that other people could have noticed; or the opposite, being so fidgety or restless that you have been moving around a lot more than usual: Not at all Thoughts that you would be b luzma off or of hurting yourself in some way: Not at all Total Score: 0 Interpretation and Intervention Depression Susan madera Findings: Negative Follow-Up for Depression: : review of PH Q-9 found negative result, no follow-up needed SDOH Questions SDOH Questions In the past year have you been worried about losing housing?: No In the past year have you or any family members you live with been unable to get any of the following when it was really needed? Check all that apply:: None Communication Needs Communication Needs Does the patient have a hearing impairment: No Does the patient have a vision impairmen t?: Yes If yes, what is the vision impairment?: Glasses Does the patient have a cognition impair ment?: No Examination Category Sub-Category Detail Notes Category Not es General Examination GENERAL APPEARANCE: well dev eloped, well nourished, in no acute distress HEAD: normocephalic, atrau matic EYES: pupils equal, round, reactive to light and accommodation, sclera non-icteric EARS: normal THROAT: clear NECK/THYROID: neck supple, full ra nge of motion, no cervical lymphadenopathy, no bruits HEART: regular rate and rhy thm, S1, S2 normal, no murmurs LUNGS: clear to auscultatio n bilaterally ABDOMEN: soft, nontender, non distended, bowel sounds present, normal, no organomegaly , no masses palpable NEUROLOGIC: nonfocal, motor stre ngth normal upper and lower extremities, sensory exam intact SKIN: warm and dry, no gabo picious lesions, abnormal with multiple dysplastic nevi none of which look suspicious EXTREMITIES: no clubbing, cyanosi s, or edema MALE GENITOURINARY: circumcised, no peni le lesions or discharge, no testicular mass, testes descended bilaterally has a benign appearing dermal nevus to the rt of his penis RECTAL EXAM: normal tone, no exte rnal hemorrhoids, no masses palpable, prostate normal, stool guaiac negative ORAL CAVITY: mucosa moist
--- OUTSIDE RECORDS SUMMARY | 2025-03-12 03:45 | XMS_ITS ---
Author Organization Elmer Betancourt MD Address [address] [place] [phone] Care Team Providers Care Non Profit Job Titles Name Role Phone Elmer Betancourt Primary Care Provider Results Component Value Reference Range Notes Liver Panel Reviewed date:03/12/2025 12:49:52 PM Interpretation: Performing Lab:[facility], [address] [place] [phone] Notes/Report: Bilirubin Total 1.0 0.0-1.0 mg/dL Bilirubin Direct 0.3 0.0-0.5 mg/dL Aspartate Amino Transferase 39 5-37 U/L Alanine Aminotransferase 36 0-40 U/L Total Protein 7.0 6.5-8.0 g/dL Albumin Level 4.4 3.5-5.0 g/dL Alkaline Phosphatase 100 39-117 U/L Lipid Panel Reviewed date:03/12/2025 12:41:48 PM Interpretation: Performing Lab:[facility], [address] [place] [phone] Notes/Report: Triglycerides 509 <150 mg/dL Desirable Triglyceride: less than 150 mg/dL Borderline High Triglyceride 150-199 mg/dL High Triglyceride: 200-499 mg/dL Very High Triglyceride: greater than or equal to 5OO mg/dL Cholesterol 132 <200 mg/dL Desirable Cholesterol: less than 200 mg/dL Borderline High Cholesterol: 200-239 mg/dL High Cholesterol: greater than 239 mg/dL LDL Cholesterol Calculated TNP <100 mg/dL Unable to calculate the LDL. The formula of Friedwald, Rosario, and Lurdes is only valid if the triglycerides are less than 400 mg/dl. HDL Cholesterol 24 >40 mg/dL Desirable HDL: greater than 40 mg/dL Note: This HDL assay may give artificially low results in patients with liver disease. Hemoglobin A1c Reviewed date:03/12/2025 12:45:01 PM Interpretation: Performing Lab:[facility], [address] [place] [phone] Notes/Report: Hemoglobin A1c % 7.8 <6.0 % Hemoglobin A1C Reference Range Adults: 4.8 - 6.0 % Non diabetic: < 6.0 % Goal: < 7.0 % Additional Action Suggested: > 8.0 % Note: Hemoglobin A1c results are invalid for patients with abnormal amounts of HbF. Blood transfusions may impact the HbA1c concentration in the patient sample. Estimated Average Glucose 177 eAG = Estimated average glucose which is %A1C expressed as average glucose, using the formula of the H8X-Odfbjef Average Glucose study (ADAG), Diabetes Care, Vol.31,#8, Apr. 2007 REASON FOR VISIT fasting liver lipids A1C Encounters Encounter Location Date Provider Diagnosis Elmer Betancourt MD [address] [place] [address] [place] [phone] 03/12/2025 Elmer Betancourt Type 2 diabetes mellitus without complication, without long-term current use of insulin E11.9 and Low HDL (under 40) E78.6 Assessments Encounter Date Diagnosis (ICD Code) Assessment Notes Treatment Notes Treatment Clinical Notes Section Notes 03/12/2025 Type 2 diabetes mellitus without complication, without long-term current use of insulin (ICD-10 - E11.9) 03/12/2025 Low HDL (under 40) (ICD-10 - E78.6) Plan Of Treatment Next Appt Details Provider Name:Elmer goins, 06/17/2025 07:30:00 AM, [address] [place] [address], [address], [place], [place], [phone], Provider Name:Elmer Shoemaker ier, 12/09/2025 07:00:00 AM, [address], [address], [place], [phone], Provider Name:Elmer Shoemaker ier, 12/16/2025 08:00:00 AM, [address], [address], [place], [phone], Progress Notes * JULIEN COLUNGA RDOB:[birth year] (40 yo M)Acc No.[id number]:03/12/2025 Progress Note Patient: JULIEN MAY Provider: Deya Betancourt MD :1985 A ge:40 Y S ex:Male Date:03/12/2025 Address:[address] [place] [address] Subjective: * Chief Complaints: * 1 . fasting liver lipids A1C. * Medical History: Objective: * Vitals: Assessment: * Assessment: 1. T ype 2 diabetes mellitus without complication, without long-term current use of insulin - E11.9 (Primary) 2 . L ow HDL (under 40) - E78.6 Plan: * Treatment: * Procedure Codes: 3 6415 VENIPUNCT, ROUTINE* * * The named appointment provid er may or may not be the originator of this progress note, and it is not deemed complete until electronically signed by the appointment provider. Sign off status: Pending * Provider: Deya Betancourt MD Date: 03/12/2025 Generated for Shelley alexandre/Lenin/Bobbysmitting on: 06/10/2025 04:52 PM EDT
--- OUTSIDE RECORDS SUMMARY | 2025-03-16 05:15 | XMS_ITS ---
Author Organization Elmer Betancourt MD Address [address] [place] [phone] Care Team Providers Care Senior Technical Manager Name Role Phone Elmer Betancourt Primary Care Provider Allergies Allergen (clinical drug ingredient) Drug/Non Drug Allergy documented on EMR Reaction Allergy Type Onset Date Status Substance with sulfonamide structure and antibacterial mechanism of action (substance) sulfa (uncoded) hives Allergy Active REASON FOR VISIT 3 month Medications Medication SIG (Take, Route, Frequency, Duration) Notes Start Date End Date Status metFORMIN HCl ER 750 MG 2 tabs Orally On ce a day for 90 days 12/10/2024 Active Ibuprofen 200 MG 1 tablet with food o r milk as needed Orally Three times a day Not-Taking Albuterol Sulfate HFA 108 (90 Base) MCG/ACT INHALE 1 PUFF INTO THE LUNGS EVERY 4 HOURS NEEDED for 25 Not-Taking Valsartan-hydroCHLOROthia zide 160-12.5 MG TAKE 1 TABLET BY MOUTH EVERY DAY FOR 90 DAYS for 90 Active Atorvastatin Calcium 40 MG TAKE 1 TABLET BY MOUTH EVERY DAY FOR 30 DAYS for 90 Active Vital Signs Blood pressure systolic 128 mm Hg 03/16/20 25 Blood pressure diastolic 80 mm Hg 025 Height 70 in 03/16/2025 Weight 212 lbs 03/16/2025 BMI 30.42 kg/m2 03/16/2025 weight is down 3 pounds [facility] 12-10-24 Encounters Encounter Location Date Provider Diagnosis Elmer Betancourt MD [address] [place] [phone] 03/16/2025 Elmer Betancourt Low HDL (under 40) E78.6 and Type 2 diabetes mellitus without complication, without long-term current use of insulin E11.9 Assessments Encounter Date Diagnosis (ICD Code) Assessment Notes Treatment Notes Treatment Clinical Notes Section Notes 03/16/2025 Low HDL (under 40) (ICD-10 - E78.6) 03/16/2025 Type 2 diabetes mellitus without complication, without long-term current use of insulin (ICD-10 - E11.9) has dropped 2.0 since november Plan Of Treatment Medication Medication Name Sig Start Date Stop Date Notes metFORMIN HCl ER 750 MG 2 tabs Orally On ce a day for 90 days 12/10/2024 Treatment Notes Assessment Notes Type 2 diabetes mellitus wit hout complication, without long-term current use of insulin has dropped 2.0 since november Pending Test Test Name Order Date DIRECT LDL 03/16/2025 Glucose Fasting 03/16/2025 Next Appt Details Follow Up: 3 Months, Reason: Provider Name:Elmer goins, 06/17/2025 07:30:00 AM, [address] [place] [address], [phone], Provider Name:Elmer goins, 12/09/2025 07:00:00 AM, [address] [place] [address], [address], [phone], Provider Name:Elmer goins, 12/16/2025 08:00:00 AM, [address] [place] [address], [phone], Progress Notes * JULIEN COLUNGA RDOB:[birth year] (40 yo M)Acc No.[id number]:03/16/2025 Progress Notes Patient: Dustin NESTORJULIEN Provider: Deya Betancourt MD :1985 A ge:40 Y S ex:Male Date:03/16/2025 Address:[address] [place] [address] Subjective: * Chief Complaints: * 3 month * HPI: S ymptom(s): patient is a 40 yo male here for 3 month follow up visit. * ROS: G eneral/Constitutional: Denies C hills. D enies F atigue. D enies F ever. D enies H eadache. E NT: Denies S ore throat. E ndocrine: Admits D ifficulty sleeping. D enies D izziness.?Denies E xcessive sweating. D enies E xcessive thirst. D enies F requent urination. R espiratory: Denies C ough. D enies S hortness of breath at rest. D enies S hortness of breath with exertion. G astrointestinal: Denies D iarrhea. D enies N ausea. * Medical History: * Surgical History: * Hospitalization/Major Diagno stic Procedure: * Medications: T akingmetFORMIN HCl ER 750 MG Tablet Extended Release 24 Hour 1 tablet with evening meal Orally Once a day Atorvastatin Calcium 40 MG Tablet TAKE 1 TABLET BY MOUTH EVERY DAY FOR 30 DAYS Valsartan-hydroCHLOROthiazide 160-12.5 MG Tablet TAKE 1 TABLET BY MOUTH EVERY DAY FOR 90 DAYS Taking metFORMIN HCl ER 750 MG Tablet Extended Release 24 Hour 1 tablet with evening meal Orally Once a day Taking Atorvastatin Calcium 40 MG Tablet TAKE 1 TABLET BY MOUTH EVERY DAY FOR 30 DAYS Taking Valsartan-hydroCHLOROthiazide 160-12.5 MG Tablet TAKE 1 TABLET BY MOUTH EVERY DAY FOR 90 DAYS Not-Taking/PRNAlbuterol Sulfate HFA 108 (90 Base) MCG/ACT Aerosol Solution INHALE 1 PUFF INTO THE LUNGS EVERY 4 HOURS NEEDED Ibuprofen 200 MG Tablet 1 tablet with food or milk as needed Orally Three times a day Medication List reviewed and reconciled with the patientNot-Taking/PRN Albuterol Sulfate HFA 108 (90 Base) MCG/ACT Aerosol Solution INHALE 1 PUFF INTO THE LUNGS EVERY 4 HOURS NEEDED Not- Taking/PRN Ibuprofen 200 MG Tablet 1 tablet with food or milk as needed Orally Three times a day Medication List reviewed and reconciled with the patient * Allergies: s ulfa: hivesyes[Allergies Verified] Objective: * Vitals: H t: 70, Wt: 212, BMI:30.42, BP:128/80, Wt-k.16. weight is down 3 pounds since 12-10-24. * P ast Orders: L ab:Liver Panel (Order Date - 03/12/2025) (Collection Date & Time - 03/12/2025 07:45 AM) Value Reference Range Bilirubin Total 1.0 0.0-1.0 - mg/dL Bilirubin Direct 0.3 0.0-0.5 - mg/dL Aspartate Amino Transferase 39 H 5-37 - U/L Alanine Aminotransferase 36 0-40 - U/L Total Protein 7.0 6.5-8.0 - g/dL Albumin Level 4.4 3.5-5.0 - g/dL Alkaline Phosphatase 100 39-117 - U/L L ab:Lipid Panel (Order Date - 03/12/2025) (Collection Date & Time - 03/12/2025 07:45 AM) Value Reference Range Triglycerides 509 H <150 - mg/dL Cholesterol 132 <200 - mg/dL LDL Cholesterol Calculated TNP <100 - mg/dL HDL Cholesterol 24 L >40 - mg/dL L ab:Hemoglobin A1c (Order Date - 03/12/2025) (Collection Date & Time - 03/12/2025 07:45 AM) Value Reference Range Hemoglobin A1c % 7.8 H <6.0 - % Estimated Average Glucose 177 - mg/dL * Examination: G eneral Examination: GENERAL APPEARANCE: a lert, well hydrated, in no distress.? HEAD: n ormocephalic. SKIN: g ood turgor. HEART: r egular rate and rhythm, no murmurs, rubs, gallops.? LUNGS: n o wheezes, rales, rhonchi, good air movement, clear to auscultation bilaterally. Assessment: * Assessment: 1. L ow HDL (under 40) - E78.6 (Primary) 2 . T ype 2 diabetes mellitus without complication, without long-term current use of insulin - E11.9 Plan: * Treatment: 2. T ype 2 diabetes mellitus without complication, without long-term current use of insulin Notes: has dropped 2.0 since november * Procedure Codes: * Follow Up: 3 Months * * Sign off status: Completed true * Provider: Deya Betancourt MD Date: 0 03/16/2025 Generated for Shelley alexandre/Lenin/Ghadaitting on: 0 06/10/2025 04:51 PM EDT History and Physical Notes * HPI (History of Present Illness) Category Sub-Category Detail Notes Category Not es Symptom(s) patient is a 40 yo male here for 3 month follow up visit Examination Category Sub-Category Detail Notes Category Not es General Examination GENERAL APPEARANCE: alert, w ell hydrated, in no distress HEAD: normocephalic HEART: regular rate and rhy thm, no murmurs, rubs, gallops LUNGS: no wheezes, rales, r honchi, good air movement, clear to auscultation bilaterally SKIN: good turgor
--- OUTSIDE RECORDS SUMMARY | 2025-05-21 04:30 | XMS_ITS ---
Author Organization Elmer Betancourt MD Address [address] [place] [phone] Care Team Providers Care Integrated Logistics Support Manager Name Role Phone Elmer Betancourt Primary Care Provider REASON FOR VISIT tick bite Medications Medication SIG (Take, Route, Frequency, Duration) Notes Start Date End Date Status Doxycycline Hyclate 100 MG 1 capsule Ora lly twoce a day for 14 days 05/21/2025 Active Encounters Encounter Location Date Provider Diagnosis Elmer Betancourt MD [address] [facility] [address] [place] [phone] 05/21/2025 Elmer Betancourt Plan Of Treatment Medication Medication Name Sig Start Date Stop Date Notes Doxycycline Hyclate 100 MG 1 capsule Ora lly twoce a day for 14 days 05/21/2025 Next Appt Details Provider Name:Elmer goins, 06/17/2025 07:30:00 AM, [address] [place] [address], [address], [phone], Provider Name:Elmer goins, 12/09/2025 07:00:00 AM, [address] [place] [address], [address], [place], [place], [phone], Provider Name:Elmer Shoemaker ier, 12/16/2025 08:00:00 AM, [address], [address], [place], [phone], Progress Notes * JULIEN COLUNGA RDOB:[birth year] (40 yo M)Acc No.[id number]:05/21/2025 Patient: JULIEN MAY :1985 A ge:40 Y S ex:Male Address:[address] [place] [address], [phone] * Refills Start Doxycycline Hyclate Capsule, 100 MG, Orally, 28, 1 capsule, twoce a day, 14 days * true * Date: Generated for Shelley alexandre/Lenin/Ghadaitting on: 0 06/10/2025 04:52 PM EDT
--- OUTSIDE RECORDS SUMMARY | 2025-06-10 03:45 | XMS_ITS ---
Author Organization Elmer Betancourt MD Address [address] [place] [phone] Care Team Providers Care Wash Box Operator Name Role Phone Elmer Betancourt Primary Care Provider [phone] Results Component Value Reference Range Notes Liver Panel Reviewed date:06/10/2025 04:36:58 PM Interpretation: Performing Lab:[facility], [address] [place] [phone] Notes/Report: Bilirubin Total 0.7 0.0-1.0 mg/dL Bilirubin Direct 0.1 0.0-0.5 mg/dL Aspartate Amino Transferase 28 5-37 U/L Alanine Aminotransferase 39 0-40 U/L Total Protein 6.5 6.5-8.0 g/dL Albumin Level 4.1 3.5-5.0 g/dL Alkaline Phosphatase 94 39-117 U/L Glucose Fasting Reviewed date:06/10/2025 04:37:19 PM Interpretation: Performing Lab:[facility], [address] [place] [phone] Notes/Report: Glucose Fasting 175 60-99 mg/dL A fasting glucose of 126 mg/dl or greater on more than one occasion is considered diagnostic of diabetes. Lipid Panel with Reflex Reviewed date:06/10/2025 04:41:58 PM Interpretation: Performing Lab:[facility], [address] [place] [phone] Notes/Report: Triglycerides 638 <150 mg/dL Desirable Triglyceride: less than 150 mg/dL Borderline High Triglyceride 150-199 mg/dL High Triglyceride: 200-499 mg/dL Very High Triglyceride: greater than or equal to 5OO mg/dL Cholesterol 124 <200 mg/dL Desirable Cholesterol: less than 200 [...] patients with liver disease. Hemoglobin A1c Reviewed date:06/10/2025 04:40:26 PM Interpretation: Performing Lab:[facility], [address] [place] [phone] Notes/Report: Hemoglobin A1c % 7.8 <6.0 % [...] average glucose, using the formula of the N3C-Kujuzrq Average Glucose study (ADAG), Diabetes Care, Vol.31,#8, Apr. 2007 REASON FOR VISIT fasting lipids Encounters Encounter Location Date Provider Diagnosis Elmer Betancourt MD [address] [place] [address] Drive [address] [place], [place] [phone] 06/10/2025 Elmer Betancourt Low HDL (under 40) E78.6 ; Type 2 diabetes mellitus without complication, without long-term current use of insulin E11.9 and Tick bite W57.XXXA Assessments Encounter Date Diagnosis (ICD Code) Assessment Notes Treatment Notes Treatment Clinical Notes Section Notes 06/10/2025 Low HDL (under 40) (ICD-10 - E78.6) 06/10/2025 Type 2 diabetes mellitus without complication, without long-term current use of insulin (ICD-10 - E11.9) 06/10/2025 Tick bite (ICD-10 - W57.XXXA) Plan Of Treatment Pending Test Test Name Order Date Tick-borne Disease Molecular 06/10/2025 Next Appt Details Provider Name:Elmer Shoemaker ier, 06/17/2025 07:30:00 AM, [address] [place] [address], [address] [place] [address], [phone], Provider Name:Elmer Shoemaker ier, 12/09/2025 07:00:00 AM, [address] [place] [address], [address] [place] [address], [phone], Provider Name:Elmer Shoemaker ier, 12/16/2025 08:00:00 AM, [address] [place] [address], [address] [place] [address], [phone], Progress Notes * JULIEN COLUNGA RDOB:[birth year] (40 yo M)Acc No.[id number]:06/10/2025 Progress Note Patient: JULIEN MAY Provider: Deya Betancourt MD :1985 A ge:40 Y S ex:Male Date:06/10/2025 Address:[address] [place] [address] Subjective: * Chief Complaints: * 1 . Fasting lipids. * Medical History: Objective: * Vitals: Assessment: * Assessment: 1. L ow HDL (under 40) - E78.6 (Primary) 2 . T ype 2 diabetes mellitus without complication, without long-term current use of insulin - E11.9 3 . T ick bite - W57.XXXA Plan: * Treatment: 2. T ype 2 diabetes mellitus without complication, without long-term current use of insulin L AB: Liver Panel (Collection Date & Time - 06/10/2025 07:45 AM) L AB: Glucose Fasting (Collection Date & Time - 06/10/2025 07:45 AM) L AB: Lipid Panel with Reflex (Collection Date & Time - 06/10/2025 07:45 AM) L AB: Hemoglobin A1c (Collection Date & Time - 06/10/2025 07:45 AM) 3. T ick bite L AB: Tick-borne Disease Molecular * Procedure Codes: 3 6415 VENIPUNCT, ROUTINE* * * The named appointment provid er may or may not be the originator of this progress note, and it is not deemed complete until electronically signed by the appointment provider. Sign off status: Pending * Provider: Deya Betancourt MD Date: 06/10/2025 Generated for Shelley alexandre/Lenin/Ghadaitting on: 06/10/2025 04:52 PM EDT
[2025-06-10 13:11] LABS: Hemoglobin A1C 218.4681 umol/L; Total Hemoglobin (HGBA1C) 3515.9888 umol/L
[2025-06-10 13:13] LABS: Alanine Aminotransferase 39 U/L (0-40); Albumin Level 4.1 g/dL (3.5-5.0); Alkaline Phosphatase 94 U/L (39-117); Aspartate Amino Transferase 28 U/L (5-37); Cholesterol 124 mg/dL (<200); HDL Cholesterol 20 mg/dL (>40); Total Protein 6.5 g/dL (6.5-8.0); Triglycerides 638 mg/dL (<150)
[2025-06-10 13:30] LABS: Reflex LDLD? Yes
--- OUTSIDE RECORDS SUMMARY | 2025-06-10 16:52 | XMS_ITS | Clinical Summary ---
Author Organization [facility] Address [address] [place] [phone] Phone Care Team Providers Care Mask Former Name Role Phone Unavailable Primary Care Provider Unavailabl e Immunizations Immunization Administration Dates Next Due DTP 03/09/1988, 4,1983,1982,1983 MMR 05/21/1994,07/02/1984 OPV 03/09/1988, 4,1983,1982 [facility] 5 Lf t etanus toxoid, PF, adsorbed [...] 07/29/1998 07/28/1998, 03/09/1988, 09/25/1984, Additional history exists Hepatitis B Vaccines (1 of 3 - 19+ 3-dose series) 2002 HPV Vaccines (1 - 3-dose SCDM series) 2010 Influenza Vaccines (#1) 2025 COVID-19 Vaccine ( - season) 2025 IPV Vaccines Completed 03/09/1988, 08/31, 1983, Additional [...]
--- OUTSIDE RECORDS SUMMARY | 2025-06-10 16:52 | XMS_ITS | Patient Health Record ---
Author Organization Elmer Betancourt MD Address [address] [place], [place] [id number] Care Team Providers Care Hospitalist Name Role Phone Elmer Betancourt Primary Care [...] 156 Complete Blood Count Auto Di ff Reviewed date:12/03/2024 12:32:00 PM Interpretation: Performing Lab:[facility], [address] [place] [phone] Notes/Report: White Blood Count 7.8 4.8-10.8 X10*3/uL [...] NRBC Abs Auto 0.000 0.0-0.012 X10*3/uL Comprehensive Haskell. Panel Fa st Reviewed date:12/03/2024 12:39:37 PM Interpretation: Performing Lab:[facility], [address] [place] [phone] Notes/Report: Sodium 140 135-145 mmol/L Potassium 3.7 [...] Panel Reviewed date:12/03/2024 12:32:11 PM Interpretation: Performing Lab:[facility], [address] [place] [phone] Notes/Report: Triglycerides 504 <150 mg/dL Desirable Triglyceride: [...] (Free>4and<10) Reviewed date:12/03/2024 12:31:36 PM Interpretation: Performing Lab:[facility], [address] [place] [phone] Notes/Report: PSA,Total (Free>4and<10) 0.54 0.00-4.00 ng/mL A [...] between 4.0 and 10.0 ng/mL. PSA methodology: DermLink i Chemiluminescent Microparticle Immunoassay (CMIA) Microalbumin, Random Reviewed date:12/03/2024 12:31:44 PM Interpretation: Performing Lab:[facility], [address] [place] [phone] Notes/Report: Creatinine Urine 640.09 Microalbumin Urine 202.0 Microalbum/Creatinine Ratio Ur 31.5 <30 ug/mg cr Albumin/Creatinine Ratio Reference Ranges: Normal: < 30 ug/mg creatinine Microalbuminuria: 30 - 300 ug/mg creatinine Clinical Albuminuria: > 300 ug/mg creatinine Hemoglobin A1c Reviewed date:12/03/2024 12:31:03 PM Interpretation: Performing Lab:[address] [phone] Notes/Report: Hemoglobin A1c % 9.7 <6.0 % [...] average glucose, using the formula of the K9X-Lyydrhy Average Glucose study (ADAG), Diabetes Care, Vol.31,#8, Apr. 2007 UA ClnCatch+Micro w/rflx Cul t Reviewed date:12/03/2024 12:39:55 PM Interpretation: Performing Lab:[address] [phone] Notes/Report: Urine, Clean Catch Color Urine Yellow Appearance Urine Hazy PH 6.0 5.0-9.0 Glucose Urine UA 250 Negative mg/dL Urine Blood Negative Negative Specific Kinnear - Urine >= 1.030 1.005-1.025 Urine Protein 30 (1+) Neg-Trace mg/dL Urine Ketones Trace Negative mg/dL Nitrite Urine Negative Negative Leukocyte Esterase Urine Negative Negative RBC Urine 0-2 0-2 /HPF WBC Urine 0-5 0-5 /HPF Squamous Epithelial Cell Urine 0-2 0-2 /HPF Bacteria Urine Trace None Seen Hyaline Casts Urine 0-2 0-2 /LPF Occult Blood, Stool, Guaiac Reviewed date:12/10/2024 10:22:52 AM Interpretation:Negative Performing Lab: Notes/Report: Negative Occult Blood, Stool, Guaiac Neg Glucose, finger stick Reviewed date:12/10/2024 07:52:19 AM Interpretation: Performing Lab: Notes/Report: Value 224 Abi Tafoya Reviewed date:03/12/2025 12:44:13 PM Interpretation: Performing Lab:[facility], [address] [place] [phone] Notes/Report: Abi Tafoya See Note Specimen held untested for 24 hours; Call to request Chemistry testing. Liver Panel Reviewed date:03/12/2025 12:49:52 PM Interpretation: Performing Lab:[facility], [address] [place] [phone] Notes/Report: Bilirubin Total 1.0 0.0-1.0 mg/dL Bilirubin Direct 0.3 0.0-0.5 mg/dL Aspartate Amino Transferase 39 5-37 U/L Alanine Aminotransferase 36 0-40 U/L Total Protein 7.0 6.5-8.0 g/dL Albumin Level 4.4 3.5-5.0 g/dL Alkaline Phosphatase 100 39-117 U/L Lipid Panel Reviewed date:03/12/2025 12:41:48 PM Interpretation: Performing Lab:[facility], [address] [place] [phone] Notes/Report: Triglycerides 509 <150 mg/dL Desirable Triglyceride: [...] A1c Reviewed date:03/12/2025 12:45:01 PM Interpretation: Performing Lab:[facility] [address] [phone] Notes/Report: Hemoglobin A1c % 7.8 <6.0 % [...] average glucose, using the formula of the A1H-Qhpciij Average Glucose study (ADAG), Diabetes Care, Vol.31,#8, 2007 Abi Tafoya Reviewed date:06/10/2025 01:01:23 PM Interpretation: Performing Lab:[address] [phone] Notes/Report: Abi Tafoya See Note Specimen held untested for 24 hours; Call to request Chemistry testing. Liver Panel Reviewed date:06/10/2025 04:36:58 PM Interpretation: Performing Lab:[address] [phone] Notes/Report: Bilirubin Total 0.7 0.0-1.0 mg/dL Bilirubin Direct 0.1 0.0-0.5 mg/dL Aspartate Amino Transferase 28 5-37 U/L Alanine Aminotransferase 39 0-40 U/L Total Protein 6.5 6.5-8.0 g/dL Albumin Level 4.1 3.5-5.0 g/dL Alkaline Phosphatase 94 39-117 U/L Glucose Fasting Reviewed date:06/10/2025 04:37:19 PM Interpretation: Performing Lab:[address] [phone] Notes/Report: Glucose Fasting 175 60-99 mg/dL A fasting glucose of 126 mg/dl or greater on more than one occasion is considered diagnostic of diabetes. Lipid Panel with Reflex Reviewed date:06/10/2025 04:41:58 PM Interpretation: Performing Lab:[address] [phone] Notes/Report: Triglycerides 638 <150 mg/dL Desirable Triglyceride: [...] A1c Reviewed date:06/10/2025 04:40:26 PM Interpretation: Performing Lab:[facility], [address] [place] [phone] Notes/Report: Hemoglobin A1c % 7.8 <6.0 % [...] average glucose, using the formula of the P6Q-Meoalub Average Glucose study (ADAG), Diabetes Care, Vol.31,#8, Apr. 2007 Reason For Referral No Information Medications Medication SIG (Take, Route, Frequency, Duration) Notes Start Date End Date Status Doxycycline Hyclate 100 MG 1 capsule Orally twoce a day for 14 days 05/21/2025 Active metFORMIN HCl ER 750 MG 2 tabs [...] DAY FOR 30 DAYS for 90 Active Immunizations Vaccine Route Administration Date Status Comme [...] 1 Interpretation Negative Section Notes: works as [employer] and [employer] works as [employer] and [employer] Problems Problem Type SNOMED Code ICD Code Onset Dates Problem Status W/U Status Risk Notes Problem 76074735 Essential hypertension (I10) Active confirmed Problem 698946154 Low HDL (under 40) (E78.6) Active confirmed Problem 876579363 Dysplastic nevi (D23.9) Active confirmed Problem 987645252 Type 2 diabetes mellitus without complication, without long-term current use of insulin (E11.9) Active confirmed Problem 743166764 Emotional stress (R45.7) Active confirmed Vital Signs Blood pressure diastolic 80 mm Hg 03/16/2025 david ght is down 3 pounds since 12-10-24 Height 70 in 03/16/2025 weight is down 3 pounds since 12-10-24 Blood pressure systolic 128 mm Hg 03/16/2025 weig ht is down 3 pounds since 12-10-24 Weight 212 lbs 03/16/2025 weight is down 3 pounds since 12-10-24 BMI 30.42 kg/m2 03/16/2025 weight is down 3 pounds since 12-10-24 Encounters Encounter Location Date Provider Diagnosis Elmer Betancourt MD [address] [place] [address] [address] [place], [place] [phone] 12/03/2024 Elmer Betancourt Blood tests for routine general physical examination Z00.00 ; Low HDL (under 40) E78.6 ; Essential hypertension I10 and Type 2 diabetes mellitus without complication, without long-term current use of insulin E11.9 Elmer Betancourt MD [address] [id number] 03/12/2025 Elmer Betancourt Type 2 diabetes mellitus without complication, without long-term current use of insulin E11.9 and Low HDL (under 40) E78.6 Elmer Betancourt MD [address] [id number] 06/10/2025 Elmer Betancourt Low HDL (under 40) E78.6 ; Type 2 diabetes mellitus without complication, without long-term current use of insulin E11.9 and Tick bite W57.XXXA Elmer Betancourt MD [address] [place] [id number] 07/09/2024 Elmer Betancourt Type 2 diabetes mellitus without complication, without long-term current use of insulin E11.9 and Emotional stress R45.7 Elmer Betancourt MD [address] [id number] 12/10/2024 Elmer Betancourt Type 2 diabetes mellitus without complication, without long-term current use of insulin E11.9 ; Annual physical exam Z00.00 ; Essential hypertension I10 ; Elevated LFTs R79.89 ; Colon cancer screening Z12.11 ; Depression screening Z13.31 and Low HDL (under 40) E78.6 Elmer Betancourt MD [address] [id number] 03/16/2025 Elmer Betancourt Low HDL (under 40) E78.6 and Type 2 diabetes mellitus without complication, without long-term current use of insulin E11.9 Elmer Betancourt MD [address] [id number] 05/21/2025 Elmer Betancourt Assessments Encounter Date Diagnosis (ICD Code) Assessment Notes Treatment Notes Treatment Clinical Notes Section Notes 12/03/2024 Blood tests for routine general physical examination (ICD-10 - Z00.00) 03/12/2025 Type 2 diabetes mellitus without complication, without long-term current use of insulin (ICD-10 - E11.9) 06/10/2025 Low HDL (under 40) (ICD-10 - E78.6) 07/09/2024 Type 2 diabetes mellitus without complication, without long-term current use of insulin (ICD-10 - E11.9) 07/09/2024 Emotional stress (ICD-10 - R45.7) is starting jumping rope to lose weight, enoying new job 12/10/2024 Type 2 diabetes mellitus without complication, without long-term current use of insulin (ICD-10 - E11.9) patient verbalized understanding of change in medication dose 12/10/2024 Annual physical exam (ICD-10 - Z00.00) labs reviewed and discussed with patient 03/16/2025 Low HDL (under 40) (ICD-10 - E78.6) 12/03/2024 Low HDL (under 40) (ICD-10 - E78.6) 03/12/2025 Low HDL (under 40) (ICD-10 - E78.6) 06/10/2025 Type 2 diabetes mellitus without complication, without long-term current use of insulin (ICD-10 - E11.9) 12/10/2024 Essential hypertension (ICD-10 - I10) doing well, will continue current regiment 03/16/2025 Type 2 diabetes mellitus without complication, without long-term current use of insulin (ICD-10 - E11.9) has dropped 2.0 since 12/03/2024 Essential hypertension (ICD-10 - I10) 06/10/2025 Tick bite (ICD-10 - W57.XXXA) 12/10/2024 Elevated LFTs (ICD-10 - R79.89) stable, will continue to monitor 12/03/2024 Type 2 diabetes mellitus without complication, without long-term current use of insulin (ICD-10 - E11.9) 12/10/2024 Colon cancer screening (ICD-10 - Z12.11) guaiac negtive 12/10/2024 Depression screening (ICD-10 - Z13.31) negative screen 12/10/2024 Low HDL (under 40) (ICD-10 - E78.6) 07/09/2024 Other Total time spen t on the date of the encounter is 35 minutes including both face to face time spent and time spent reviewing documentation, and counseling the patient. Plan Of Treatment Pending Test Test Name Order Date DIRECT LDL 03/16/2025 Glucose Fasting 03/16/2025 Tick-borne Disease Molecular 06/10/2025 Next Appt Details Provider Name:Elmer Shoemaker ier, 06/17/2025 07:30:00 AM, [address] [place] [address], Suite [facility], [place], [place], [phone], Provider Name:Elmer Shoemaker ier, 12/09/2025 07:00:00 AM, [address] [place] [address], [place] [address], [place], [place], [phone], Provider Name:Elmer Shoemaker ier, 12/16/2025 08:00:00 AM, [address] [place] [address], [place] [address], [place], [place], [phone], Insurance Providers Payer Name Payer Address Payer Phone Subscriber Number Group Number Insured Name Patient Relationship to Insured Coverage Start Date Coverage End Date [employer] [facility] [address] [place], [place] [phone] [id number] JULIEN COLUNGA Self - patient is the insured Medical (General) History Medical History History ICD Code Pre-diabetes R73.03
[2025-06-12 00:14] LABS: A. Phagocytphilium DNA,RT-PCR NOT DETECTED (NOT DETECTED); Babesia Microti DNA, RT-PCR NOT DETECTED (NOT DETECTED); Borrelia Miyamotoi,DNA RT-PCR NOT DETECTED (NOT DETECTED); E.Chaffeensis DNA RT-PCR NOT DETECTED (NOT DETECTED); Lyme(Borrelia ssp)DNA RT-PCR NOT DETECTED (NOT DETECTED)
== END 2025-06-10 12:40 | disposition home or self-care (01) ==
LOC: HO.LNP 12:39
PROVIDERS: Visit Provider Internal Medicine
DX: E11.9 Type 2 diabetes mellitus without complications (principal); E78.6 Lipoprotein deficiency; T14.90XA Injury, unspecified, initial encounter; W57.XXXA Bitten or stung by nonvenomous insect and other nonvenomous arthropods, initial encounter
CPT/HCPCS: 80061; 80076; 82947; 83036; 83721; 87468; 87469; 87478; 87484; 87798

== ENCOUNTER 2025-09-09 10:15 | Outpatient (REF) | payer BC, SELFPAY ==
[2025-09-09 10:59] LABS: Alanine Aminotransferase 52 U/L (0-40); Albumin Level 4.6 g/dL (3.5-5.0); Alkaline Phosphatase 94 U/L (39-117); Aspartate Amino Transferase 34 U/L (5-37); Cholesterol 147 mg/dL (<200); HDL Cholesterol 22 mg/dL (>40); Total Protein 7.0 g/dL (6.5-8.0); Triglycerides 628 mg/dL (<150)
[2025-09-09 11:02] LABS: Reflex LDLD? Yes
== END 2025-09-09 10:16 ==
LOC: HO.LNP 10:15
PROVIDERS: Visit Provider Internal Medicine
DX: E11.9 Type 2 diabetes mellitus without complications (principal); E78.6 Lipoprotein deficiency
CPT/HCPCS: 80061; 80076; 82947; 83036; 83721